=== PATIENT | female | born 1940 | race Caucasian/White ===

== ENCOUNTER 2020-02-28 13:00 | Emergency (ER) | payer MEDICARE, OTHER ==
[2020-02-28] MEDS ORDERED: Sodium Chloride 0.9% 10 ML Syringe FLUSH PRN (13:30)
--- NOTE | 2020-02-28 14:29 | CR ---
Abdominal series: Supine and upright views of the abdomen were obtained as well as frontal view of the chest. Comparison: No prior abdominal or chest imaging is available. Findings: Heart size and mediastinum are within normal limits for age. Lungs are clear with no acute parenchymal change. No free air is seen. Scattered gas within small bowel and colon is seen believed to be within normal limits. Surgical clips are seen within the pelvis. Bone structures shows degenerative change and mild scoliosis within the spine. Mild joint space narrowing within the left hip is seen. Impression: 1. Nonacute findings as described above. Diagnostic code #2 Study was dictated in MDT
--- NOTE | 2020-02-28 15:02 | EDM.PDOC ---
ED HPI GENERAL MEDICAL PROBLEM - General Chief Complaint: Abdominal Pain Stated Complaint: ABDOMINAL PAIN Time Seen by Provider: 02/28/20 13:15 Source of Information: Reports: Patient History Limitations: Reports: No Limitations - History of Present Illness INITIAL COMMENTS - FREE TEXT/NARRATIVE: The patient presents with upper abdominal pain. This has been going on for about a year. 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 She is from [place] and did not get it checked out. She has been here a week with family for another 3 weeks. The pain is constant but gets worse at times. Her family thought she was pale. She has no fever, chills, cough, congestion, runny nose, nausea, vomiting, dysuria or hematuria. She says she can only eat a little and she is full. Onset: Gradual Duration: Week(s): (1 year) Location: Reports: Abdomen Quality: Reports: Sharp Severity: Moderate Improves with: Reports: None Worsens with: Reports: None Associated Symptoms: Reports: No Other Symptoms Right Abdomen Pain Score (Numeric/FACES): 6 - Related Data Allergies Allergy/AdvReac Type Severity Reaction Status Date / Time No Known Allergies Allergy Verified 02/28/20 13:24 Home Meds: Home Meds Ascorbic Acid/Collagen Hydr [Collagen Plus Vit C] 1 cap PO DAILY 02/28/20 [History] Doxepin [SINEquan] 10 mg PO BEDTIME 02/28/20 [History] Ergocalciferol (Vitamin D2) [Vitamin D2] 1.25 mg PO ASDIRECTED 02/28/20 [History] Hydrocodone/Acetaminophen [Hydrocodone-Acetamin 5-325 mg] 1 - 2 each PO Q6HR PRN #20 tablet 02/28/20 [Rx] Melatonin 10 mg PO BEDTIME 02/28/20 [History] Metoprolol Tartrate 50 mg PO DAILY 02/28/20 [History] Multivitamin [Multivitamins] 1 tab PO DAILY 02/28/20 [History] Tacrolimus [Prograf] 1 mg PO BID 02/28/20 [History] amLODIPine [Norvasc] 5 mg PO DAILY 02/28/20 [History] metFORMIN [Glucophage] 500 mg PO BID 02/28/20 [History] traMADol [Ultram] 50 - 100 mg PO TID PRN 02/28/20 [History] Past Medical History Cardiovascular History: Reports: Hypertension Gastrointestinal History: Reports: Other (See Below) Other Gastrointestinal History: liver transplant; abdominal hernia repair with mesh Endocrine/Metabolic History: Reports: Diabetes, Type II - Past Surgical History Female Surgical History: Reports: Section, Hysterectomy Social & Family History - Tobacco Use Smoking Status *Q: Former Smoker Used Tobacco, but Quit: Yes Month/Year Tobacco Last Used: 40 yrs - Caffeine Use Caffeine Use: Reports: Soda Other Caffeine Use: diet - Recreational Drug Use Recreational Drug Use: No ED ROS GENERAL - Review of Systems Review Of Systems: See Below Constitutional: Reports: No Symptoms HEENT: Reports: No Symptoms Respiratory: Reports: No Symptoms Cardiovascular: Reports: No Symptoms Endocrine: Reports: No Symptoms GI/Abdominal: Reports: Abdominal Pain. Denies: Diarrhea, Nausea, Vomiting : Reports: No Symptoms Musculoskeletal: Reports: No Symptoms ED EXAM, GI/ABD - Physical Exam Exam: See Below Exam Limited By: No Limitations General Appearance: Alert, No Apparent Distress Ears: Normal External Exam Nose: Normal Inspection Head: Atraumatic, Normocephalic Neck: Normal Inspection Respiratory/Chest: No Respiratory Distress, Lungs Clear, Normal Breath Sounds Cardiovascular: Regular Rate, Rhythm, No Edema, No Murmur GI/Abdominal Exam: Soft, No Organomegaly, No Mass, Tender (Mild tenderness to the epigastric area) Course - Vital Signs Last Recorded V/S: Last Vital Signs Temp 97.3 F 02/28/20 13:17 Pulse 69 02/28/20 13:17 Resp 20 02/28/20 13:17 BP 132/60 02/28/20 13:17 Pulse Ox 98 02/28/20 13:17 - Orders/Labs/Meds Orders: Active Orders 24 hr Category Date Time Status Peripheral IV Care [RC] . DIRECTED Care 02/28/20 13:32 Active Sodium Chloride 0.9% [Saline Flush] Med 02/28/20 13:30 Active 10 ml FLUSH ASDIRECTED PRN Peripheral IV Insertion Adult [OM.PC] Stat Oth 02/28/20 13:30 Ordered Medication Orders Sodium Chloride (Saline Flush) 10 ml FLUSH ASDIRECTED PRN PRN Reason: Keep Vein Open Last Admin: 02/28/20 13:20 Dose: 10 ml Documented by: JENI Labs: Laboratory Tests 02/28/20 02/28/20 Range/Units 13:58 13:58 WBC 6.51 (3.98-10.04) K/mm3 RBC 4.13 (3.98-5.22) M/mm3 Hgb 12.1 (11.2-15.7) gm/dl Hct 36.6 (34.1-44.9) % MCV 88.6 (79.4-94.8) fl MCH 29.3 (25.6-32.2) pg MCHC 33.1 (32.2-35.5) g/dl RDW Std Deviation 49.3 H (36.4-46.3) fL Plt Count 160 L (182-369) K/mm3 MPV 9.2 L (9.4-12.3) fl Neut % (Auto) 61.8 (34.0-71.1) % Lymph % (Auto) 26.6 (19.3-51.7) % Giles % (Auto) 9.7 (4.7-12.5) % Eos % (Auto) 1.4 (0.7-5.8) Baso % (Auto) 0.3 (0.1-1.2) % Neut # (Auto) 4.03 (1.56-6.13) K/mm3 Lymph # (Auto) 1.73 (1.18-3.74) K/mm3 Giles # (Auto) 0.63 H (0.24-0.36) K/mm3 Eos # (Auto) 0.09 (0.04-0.36) K/mm3 Baso # (Auto) 0.02 (0.01-0.08) K/mm3 Sodium 141 (136-145) mEq/L Potassium 3.3 L (3.5-5.1) mEq/L Chloride 105 (98-107) mEq/L Carbon Dioxide 28 (21-32) mEq/L Anion Gap 11.3 (5-15) BUN 15 (7-18) mg/dL Creatinine 1.1 H (0.55-1.02) mg/dL Est Cr Clr Drug Dosing 40.09 mL/min Estimated GFR (MDRD) 48 (>60) mL/min BUN/Creatinine Ratio 13.6 L (14-18) Glucose 153 H (83-115) mg/dL Calcium 9.2 (8.5-10.1) mg/dL Total Bilirubin 1.1 H (0.2-1.0) mg/dL AST 23 (15-37) U/L ALT 15 (14-59) U/L Alkaline Phosphatase 62 (46-116) U/L Total Protein 7.5 (6.4-8.2) g/dl Albumin 3.1 L (3.4-5.0) g/dl Globulin 4.4 gm/dL Albumin/Globulin Ratio 0.7 L (1-2) Lipase 157 (73-393) U/L Meds: Medications Generic Name Dose Route Start Last Admin Trade Name Freq PRN Reason Stop Dose Admin Sodium Chloride 10 ml 02/28/20 13:30 02/28/20 13:20 Saline Flush FLUSH 10 ml ASDIRECTED PRN Administration Keep Vein Open - Re-Assessments/Exams Free Text/Narrative Re-Assessment/Exam: 02/28/20 15:08 I ordered an x-ray and some labs. Her abdominal x-ray shows nothing acute. Her CBC looks good. Her K was 3.3. Her creatinine is elevated at 1.1. Her glucose was elevated at 153. Her total bili was elevated at 1.1. Her lipase is normal. I do not see a reason to do a CT. She said she has been scoped before. I will get her something for pain and have her follow up with one of our providers in our clinic. Departure - Departure Time of Disposition: 15:15 Disposition: Home, Self-Care 01 Condition: Good Clinical Impression: Abdominal pain Qualifiers: Abdominal location: upper abdomen, unspecified Qualified Code(s): R10.10 - Upper abdominal pain, unspecified - Discharge Information *PRESCRIPTION DRUG MONITORING PROGRAM REVIEWED*: Not Applicable *COPY OF PRESCRIPTION DRUG MONITORING REPORT IN PATIENT SEGUNDO: Not Applicable Prescriptions: Hydrocodone/Acetaminophen [Hydrocodone-Acetamin 5-325 mg] 1 - 2 each PO Q6HR PRN #20 tablet PRN Reason: Pain Referrals: PCP,Not In Area [Primary Care Provider] - Salome Olivas DIE OUT WORKER [Nurse Practitioner] - 1 Week Forms: ED Department Discharge Additional Instructions: Take your medication as prescribed. Try some pepcid daily for 2 weeks. Try the hydrocodone for pain instead of the ultram. Follow up with Salome Nguyen in the clinic. Please return if you are worse. Sepsis Event Note (ED) - Evaluation Sepsis Screening Result: No Definite Risk - Focused Exam Vital Signs: Vital Signs Temp Pulse Resp BP Pulse Ox 02/28/20 13:17 97.3 F 69 20 132/60 98 - My Orders Last 24 Hours: My Active Orders 02/28/20 13:30 Sodium Chloride 0.9% [Saline Flush] 10 ml FLUSH ASDIRECTED PRN Peripheral IV Insertion Adult [OM.PC] Stat 02/28/20 13:32 Peripheral IV Care [RC] . DIRECTED - Assessment/Plan Last 24 Hours: My Active Orders 02/28/20 13:30 Sodium Chloride 0.9% [Saline Flush] 10 ml FLUSH ASDIRECTED PRN Peripheral IV Insertion Adult [OM.PC] Stat 02/28/20 13:32 Peripheral IV Care [RC] . DIRECTED
== END 2020-02-28 15:35 | disposition home or self-care (01) ==
LOC: JD.ED 13:00
DX: R10.11 Right upper quadrant pain (principal); R10.13 Epigastric pain; I10 Essential (primary) hypertension; E11.9 Type 2 diabetes mellitus without complications; Z94.4 Liver transplant status; Z90.710 Acquired absence of both cervix and uterus; Z87.891 Personal history of nicotine dependence; Z79.84 Long term (current) use of oral hypoglycemic drugs; Z79.899 Other long term (current) drug therapy
CPT/HCPCS: 36415; 74022; 74022-26; 80053; 83690; 85025; 99283; 99284-25

== ENCOUNTER 2020-05-22 14:28 | Emergency (ER) | payer MEDICARE | END 2020-05-22 14:30 | disposition left against medical advice (07) | LOC: JD.ED 14:28 | DX: Z53.21 Procedure and treatment not carried out due to patient leaving prior to being seen by health care provider (principal) ==

== ENCOUNTER 2020-06-09 14:23 | Inpatient (IN) | payer MEDICARE ==
[2020-06-09] MEDS ORDERED: Sodium Chloride 0.9% 1,000 ML IV ONE (14:55)
--- NOTE | 2020-06-09 15:10 | EDM.PDOC ---
<Noah Kwon - Last Filed: 06/09/20 16:17> ED HPI GENERAL MEDICAL PROBLEM - General Chief Complaint: General Stated Complaint: LOW BLOOD PRESSURE,POSSIBLE BLEED POST SURG Time Seen by Provider: 06/09/20 14:55 Source of Information: Reports: Patient, Family History Limitations: Reports: No Limitations - History of Present Illness INITIAL COMMENTS - FREE TEXT/NARRATIVE: 79-year-old female who presents to the emergency department with complaints of low blood pressure and abdominal pain, increased weakness, and decreased appetite. The patient had a bowel resection on June 01 at [facility] in [place]. She was discharged to home on June 04. Since she has been home both her and the daughter reports she has not had much of an appetite. She has not had a fever or vomiting but she has been nauseated. She has had a bowel movement since surgery. Last bowel movement was this morning which the patient described as cottage cheese looking however the daughter of the patient states it was mushy and brown. They denied noticing any ingrid red blood or dark tarry stools. The patient has not been taking her pain meds has maybe only taken a total of 6 since she has been home. Home health care nurse was in to see the patient today and noted low blood pressures and recommended the patient be sent to the emergency department. Initial blood pressure in the emergency department was 97/45 with a heart rate of 60. Of note she does take metoprolol. The patient surgical incisions to her abdomen are healing well and there is no drainage, erythema, or edema noted. Onset: Gradual Lower Abdomen Pain Score (Numeric/FACES): 3 - Related Data Allergies Allergy/AdvReac Type Severity Reaction Status Date / Time No Known Allergies Allergy Verified 06/09/20 14:42 Home Meds: Home Meds Doxepin [SINEquan] 10 mg PO BEDTIME 02/28/20 [History] Ergocalciferol (Vitamin D2) [Vitamin D2] 1.25 mg PO ASDIRECTED 02/28/20 [History] Hydrocodone/Acetaminophen [Hydrocodone-Acetamin 5-325 mg] 1 - 2 each PO Q6HR PRN #20 tablet 02/28/20 [Rx] Melatonin 20 mg PO BEDTIME 02/28/20 [History] Metoprolol Tartrate 50 mg PO DAILY 02/28/20 [History] Multivitamin [Multivitamins] 1 tab PO DAILY 02/28/20 [History] Tacrolimus [Prograf] 1 mg PO BID 02/28/20 [History] amLODIPine [Norvasc] 5 mg PO DAILY 02/28/20 [History] metFORMIN [Glucophage] 500 mg PO BID 02/28/20 [History] traMADol [Ultram] 50 - 100 mg PO TID PRN 02/28/20 [History] Omeprazole 20 mg PO DAILY 06/09/20 [History] Vit A/C/Biotin/Zinc/Selenometh [Biotin-Vitamin C Softgel] 1 cap PO DAILY 06/09/20 [History] Past Medical History Cardiovascular History: Reports: Hypertension Gastrointestinal History: Reports: Other (See Below) Other Gastrointestinal History: liver transplant; abdominal hernia repair with mesh 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: Endocrine/Metabolic History: Reports: Diabetes, Type II Oncologic (Cancer) History: Reports: Colon - Infectious Disease History Infectious Disease History: Reports: Chicken Pox, Measles, Mumps - Past Surgical History HEENT Surgical History: Reports: Tonsillectomy GI Surgical History: Reports: Appendectomy, Cholecystectomy, Colon Female Surgical History: Reports: Section, Hysterectomy Social & Family History - Tobacco Use Tobacco Use Status *Q: Never Tobacco User Second Hand Smoke Exposure: No - Caffeine Use Caffeine Use: Reports: None Other Caffeine Use: diet - Recreational Drug Use Recreational Drug Use: No ED ROS GENERAL - Review of Systems Review Of Systems: See Below Constitutional: Reports: Weakness, Decreased Appetite. Denies: Fever, Chills HEENT: Reports: No Symptoms Respiratory: Reports: No Symptoms Cardiovascular: Reports: No Symptoms. Denies: Chest Pain, Palpitations, Syncope Endocrine: Reports: No Symptoms GI/Abdominal: Reports: Abdominal Pain, Decreased Appetite, Nausea. Denies: Black Stool, Bloody Stool, Constipation, Diarrhea, Distension, Melena, Vomiting : Reports: No Symptoms. Denies: Dysuria, Frequency, Urgency Musculoskeletal: Reports: No Symptoms Skin: Reports: No Symptoms Neurological: Reports: No Symptoms Psychiatric: Reports: No Symptoms Hematologic/Lymphatic: Reports: No Symptoms Immunologic: Reports: No Symptoms ED EXAM, GENERAL - Physical Exam Exam: See Below Exam Limited By: No Limitations General Appearance: Alert, WD/WN, No Apparent Distress Eye Exam: Bilateral Eye: Normal Inspection, PERRL Throat/Mouth: Normal Inspection, Normal Lips, Normal Teeth, No Airway Compromise Head: Atraumatic, Normocephalic Neck: Normal Inspection, Supple, Non-Tender, Full Range of Motion Respiratory/Chest: No Respiratory Distress, Lungs Clear, Normal Breath Sounds, No Accessory Muscle Use, Chest Non-Tender Cardiovascular: Normal Peripheral Pulses, Regular Rate, Rhythm, No Edema, No Murmur Peripheral Pulses: 2+: Radial (L), Radial (R) GI/Abdominal: Normal Bowel Sounds, Soft, No Distention, Tender (right upper quadrant very tender with palpation) (Female) Exam: Deferred Rectal (Female) Exam: Deferred Back Exam: Normal Inspection, Full Range of Motion Extremities: Normal Inspection, Normal Range of Motion, Non-Tender, No Pedal Edema, Normal Capillary Refill Neurological: Alert, Oriented, Normal Cognition, No Motor/Sensory Deficits Psychiatric: Normal Affect, Normal Mood Skin Exam: Warm, Dry, Intact, No Rash, Pallor Lymphatic: No Adenopathy Course - Re-Assessments/Exams Free Text/Narrative Re-Assessment/Exam: 06/09/20 15:14 I have ordered a CBC, CMP, magnesium, and a C-reactive protein on this patient. I also elected to do a CT scan of her abdomen and pelvis. Patient will also receive a liter of normal saline wide open. 06/09/20 16:17 Labs reveal WBC at 8.42, hemoglobin 9.6, hematocrit 30.3, potassium is 3.5, BUN 11, creatinine 1.4, GFR 36, magnesium 0.8, C-reactive protein 3.6. I have ordered 4 g of magnesium IV, and 40 mEq of potassium p.o. for this patient. Awaiting radiologist read on CT scanning. 06/09/20 16:17 I have reported off to Amanda CAMPBELL on this patient. Departure - Departure Disposition: Admitted As Inpatient 68 Clinical Impression: Hypomagnesemia Hypotension Qualifiers: Hypotension type: other hypotension type Qualified Code(s): I95.89 - Other hypotension - Discharge Information Sepsis Event Note (ED) - Evaluation Sepsis Screening Result: No Definite Risk <Amanda Martínez V - Last Filed: 06/09/20 18:42> Course - Vital Signs Last Recorded V/S: Last Vital Signs Temp 96.9 F 06/09/20 18:25 Pulse 67 06/09/20 18:25 Resp 16 06/09/20 18:25 BP 115/51 L 06/09/20 18:25 Pulse Ox 93 L 06/09/20 18:25 Orthostatic Blood Pressure [ 117/47 Standing] Orthostatic Blood Pressure [ 105/45 Sitting] Orthostatic Blood Pressure [ 121/43 Supine] - Orders/Labs/Meds Orders: Active Orders 24 hr Category Date Time Status Orthostatic Vital Signs [RC] ASDIRECTED Care 06/09/20 14:46 Active Magnesium Sulfate/Water [Magnesium Sulfate in Water Med 06/09/20 15:52 Active Premix] 4 gm Premix Bag 1 bag IV ONETIME Sodium Chloride 0.9% [Saline Flush] Med 06/09/20 15:25 Active 10 ml FLUSH ONETIME PRN Medication Orders Acetaminophen (Tylenol) 650 mg PO Q4H PRN PRN Reason: Pain (Mild 1-3)/fever Hydrocodone Bitart/Acetaminophen ([place] 325-5 Mg) 2 tab PO Q4H PRN PRN Reason: Pain (moderate 4-6) Enoxaparin Sodium (Lovenox) 30 mg SUBCUT DAILY [facility] Magnesium Sulfate 4 gm/ Premix 50 mls @ 12.5 mls/hr IV ONETIME ONE Stop: 06/09/20 19:51 Last Admin: 06/09/20 16:28 Dose: 12.5 mls/hr Documented by: JENI Lactated Ringer's (Ringers, Lactated) 1,000 mls @ 50 mls/hr IV ASDIRECTED [facility] Promethazine HCl (Phenergan) 25 mg PO Q6H PRN PRN Reason: Nausea/Vomiting Sodium Chloride (Saline Flush) 10 ml FLUSH ONETIME PRN PRN Reason: IV FLUSH Last Admin: 06/09/20 14:50 Dose: 10 ml Documented by: JENI Labs: Laboratory Tests 06/09/20 06/09/20 06/09/20 Range/Units 14:50 14:50 14:50 WBC 8.42 (3.98-10.04) K/mm3 RBC 3.28 L (3.98-5.22) M/mm3 Hgb 9.6 L D (11.2-15.7) gm/dl Hct 30.3 L (34.1-44.9) % MCV 92.4 D (79.4-94.8) fl MCH 29.3 (25.6-32.2) pg MCHC 31.7 L (32.2-35.5) g/dl RDW Std Deviation 53.4 H (36.4-46.3) fL Plt Count 197 (182-369) K/mm3 MPV 9.2 L (9.4-12.3) fl Neut % (Auto) 65.5 (34.0-71.1) % Lymph % (Auto) 20.1 (19.3-51.7) % [place]oard % (Auto) 9.7 (4.7-12.5) % Eos % (Auto) 4.0 (0.7-5.8) Baso % (Auto) 0.2 (0.1-1.2) % Neut # (Auto) 5.51 (1.56-6.13) K/mm3 Lymph # (Auto) 1.69 (1.18-3.74) K/mm3 [place]oard # (Auto) 0.82 H (0.24-0.36) K/mm3 Eos # (Auto) 0.34 (0.04-0.36) K/mm3 Baso # (Auto) 0.02 (0.01-0.08) K/mm3 Sodium 140 (136-145) mEq/L Potassium 3.5 (3.5-5.1) mEq/L Chloride 105 (98-107) mEq/L Carbon Dioxide 28 (21-32) mEq/L Anion Gap 10.5 (5-15) BUN 11 (7-18) mg/dL Creatinine 1.4 H (0.55-1.02) mg/dL Est Cr Clr Drug Dosing 31.50 mL/min Estimated GFR (MDRD) 36 (>60) mL/min BUN/Creatinine Ratio 7.9 L (14-18) Glucose 133 H (83-115) mg/dL Calcium 8.7 (8.5-10.1) mg/dL Magnesium 0.8 L (1.8-2.4) mg/dl Total Bilirubin 0.9 (0.2-1.0) mg/dL AST 16 (15-37) U/L ALT 13 L (14-59) U/L Alkaline Phosphatase 57 (46-116) U/L C-Reactive Protein 3.6 H* (<1.0) mg/dL Total Protein 5.9 L (6.4-8.2) g/dl Albumin 2.4 L (3.4-5.0) g/dl Globulin 3.5 gm/dL Albumin/Globulin Ratio 0.7 L (1-2) SARS-CoV-2 RNA (NAVEED) (NEGATIVE) 06/09/20 Range/Units 17:00 WBC (3.98-10.04) K/mm3 RBC (3.98-5.22) M/mm3 Hgb (11.2-15.7) gm/dl Hct (34.1-44.9) % MCV (79.4-94.8) fl MCH (25.6-32.2) pg MCHC (32.2-35.5) g/dl RDW Std Deviation (36.4-46.3) fL Plt Count (182-369) K/mm3 MPV (9.4-12.3) fl Neut % (Auto) (34.0-71.1) % Lymph % (Auto) (19.3-51.7) % Foard % (Auto) (4.7-12.5) % Eos % (Auto) (0.7-5.8) Baso % (Auto) (0.1-1.2) % Neut # (Auto) (1.56-6.13) K/mm3 Lymph # (Auto) (1.18-3.74) K/mm3 Foard # (Auto) (0.24-0.36) K/mm3 Eos # (Auto) (0.04-0.36) K/mm3 Baso # (Auto) (0.01-0.08) K/mm3 Sodium (136-145) mEq/L Potassium (3.5-5.1) mEq/L Chloride (98-107) mEq/L Carbon Dioxide (21-32) mEq/L Anion Gap (5-15) BUN (7-18) mg/dL Creatinine (0.55-1.02) mg/dL Est Cr Clr Drug Dosing mL/min Estimated GFR (MDRD) (>60) mL/min BUN/Creatinine Ratio (14-18) Glucose (83-115) mg/dL Calcium (8.5-10.1) mg/dL Magnesium (1.8-2.4) mg/dl Total Bilirubin (0.2-1.0) mg/dL AST (15-37) U/L ALT (14-59) U/L Alkaline Phosphatase (46-116) U/L C-Reactive Protein (<1.0) mg/dL Total Protein (6.4-8.2) g/dl Albumin (3.4-5.0) g/dl Globulin gm/dL Albumin/Globulin Ratio (1-2) SARS-CoV-2 RNA (NAVEED) Negative (NEGATIVE) Meds: Medications Generic Name Dose Route Start Last Admin Trade Name Freq PRN Reason Stop Dose Admin Acetaminophen 650 mg 06/09/20 17:50 Tylenol PO Q4H PRN Pain (Mild 1-3)/fever Hydrocodone Bitart/Acetaminophen 2 tab 06/09/20 17:50 [place] 325-5 Mg PO Q4H PRN Pain (moderate 4-6) Enoxaparin Sodium 30 mg 06/10/20 09:00 Lovenox SUBCUT DAILY [facility] Magnesium Sulfate 4 gm/ Premix 50 mls @ 12.5 mls/hr 06/09/20 15:52 06/09/20 16:28 IV 06/09/20 19:51 12.5 mls/hr ONETIME ONE Administration Lactated Ringer's 1,000 mls @ 50 mls/hr 06/09/20 18:00 Ringers, Lactated IV ASDIRECTED [facility] Promethazine HCl 25 mg 06/09/20 17:50 Phenergan PO Q6H PRN Nausea/Vomiting Sodium Chloride 10 ml 06/09/20 15:25 06/09/20 14:50 Saline Flush FLUSH 10 ml ONETIME PRN Administration IV FLUSH Discontinued Medications Generic Name Dose Route Start Last Admin Trade Name Freq PRN Reason Stop Dose Admin Sodium Chloride 1,000 mls @ 999 mls/hr 06/09/20 14:55 06/09/20 15:54 Normal Saline IV 06/09/20 15:55 999 mls/hr ONETIME ONE Administration Iopamidol 100 ml 06/09/20 15:25 06/09/20 15:43 Isovue-300 (61%) IVPUSH 06/09/20 15:26 100 ml ONETIME ONE Administration Potassium Chloride 40 meq 06/09/20 15:52 06/09/20 16:26 Klor-Con M20 PO 06/09/20 15:53 40 meq ONETIME ONE Administration - Re-Assessments/Exams Free Text/Narrative Re-Assessment/Exam: 06/09/20 16:04 Received report from Stefano Ac NP patient was found to be hypomagnesemic at 0.8, potassium on the low side of normal at 3.5, hemoglobin mildly low at 9.6, otherwise she has no elevated white count CRP is mildly elevated at 3. Abdomen/pelvis CT is still pending at this time. Noah is ordering 4 g mag and 40 mEq p.o. potassium for initial management for the electrolyte abnormalities, we are still awaiting official radiology read of the CT. 06/09/20 17:[address] has been read, and there is mild wall thickening within the right side of the jejunal loops with a small amount of surrounding fluid suspicious for mild enteritis. Some of this may relate to her surgery but there is additional fluid seen within the pelvis. Previous surgery noted within the abdomen. Haziness within the mesentery which is presumably postsurgical. 2 pancreatic cysts, given age of the patient 75 these are likely benign, no other acute findings were appreciated. With this information, her low magnesium, low blood pressure at time of presentation I do believe the patient would benefit from hospitalization for ongoing management. Patient is amenable to this plan. I have called Dr. Lynn our hospitalist for possible admission. He was busy and states he will come over to talk with me when he was finished with what he was doing at the time I called him. Patient's [id number], Naya was called as well, she is tentatively okay with the hospital admission as well. The [id number] indicates that the patient would want CPR, but would not want to be intubated or kept alive by machines and tubes. Departure - Departure Time of Disposition: 18:41 Condition: Fair Sepsis Event Note (ED) - Focused Exam Vital Signs: Vital Signs Temp Pulse Resp BP Pulse Ox 06/09/20 14:38 97.1 F 60 14 97/45 L 97
[2020-06-09] MEDS ORDERED: Iopamidol 612 MG/ML 100 ML Bottle IVPUSH ONE (15:25)
[2020-06-09] MEDS ORDERED: Sodium Chloride 0.9% 10 ML Syringe FLUSH PRN (15:25)
[2020-06-09] MEDS ORDERED: Potassium Chloride 20 MEQ Tab.ER PO ONE (15:52)
[2020-06-09] MEDS ORDERED: Magnesium Sulfate/Water 4 GM in Premix Bag 1 BAG IV ONE (15:52)
--- NOTE | 2020-06-09 16:09 | CT ---
CT abdomen and pelvis Technique: Multiple axial sections were obtained from above the dome of the diaphragm inferiorly through the pubic symphysis. Intravenous contrast was utilized. No oral contrast was given. Findings: There is slight thickening of portions of the proximal jejunum. Previous surgery is noted within the proximal jejunum and abdomene. There is fluid being seen around these areas of wall thickening as well as more confluent fluid within the pelvis. Findings are highly suspicious for mild enteritis. Visualized lung bases show nothing acute. Liver shows no focal abnormality. Spleen size measures at the upper limits of normal at 12.5 cm. Kidneys show symmetric contrast enhancement with no hydronephrosis or discrete mass. Aorta shows diffuse atherosclerotic calcification which continues into the iliac vessels. Pancreas shows a small cyst within the neck of the pancreas. Second smaller cyst is seen within the body of the pancreas measuring 8 cm. No additional pancreatic finding is appreciated. Slight haziness is noted within portions of the mesentery presumably from previous surgery. Delayed images show slight contrast within the bladder. Osseous: Diffuse degenerative change noted throughout the spine. No acute osseous finding is appreciated. Impression: 1. Mild wall thickening within right side of jejunal loops with a small amount of surrounding fluid suspicious for mild enteritis. Some of this may relate to surgery. Additional fluid is seen within the pelvis. 2. Previous surgery is noted within the abdomen. Haziness within the mesentery which is presumably postsurgical. 3. Two cysts within the pancreas. Given the patient's age of 75 these are likely benign. 3. Other nonacute findings as noted above. Diagnostic code #3
[2020-06-09] MEDS ORDERED: Acetaminophen 325 MG Tab PO PRN (17:50)
[2020-06-09] MEDS ORDERED: Promethazine 25 MG Tab PO PRN (17:50)
--- NOTE | 2020-06-09 18:50 | PCM.HP.2 ---
H&P History of Present Illness - General Date of Service: 06/09/20 Admit Problem/Dx: Admission Diagnosis/Problem Admission Diagnosis/Problem Hypomagnesemia/weakness/post op partial colectomy Source of Information: Patient, EMS, Provider History Limitations: Reports: No Limitations - History of Present Illness Initial Comments - Free Text/Narative: 79 year old female admitted with weakness 4 days s/p partial colectomy for colon cancer. she relates sh is having brown cottege cheese like bms today and feels very weak with abd pain in lower abd. denies fever chills rigors . no vomiting but mild nausea but eating fairly well. feels dizzy when standing. voiding well and wears depends for partial incontinence. apperent colon resection for colon cancer . previous hysterectomy . no hx of sbo by hx. not eating today and felt weak. taking pain meds but still very painful. pmh diff to get from patient all : unknown soc hx lives at home with son? nobody available for hx . verification ros negative for covid /uti chest pain /tia and or bleeding form rectum. p.e. see note. lab mg .7 hgn 9.4. lfts pending. ua pending ct scan shows edema around jujunum and colon with surgical changes and edema of bowel wall with thickening . chest xray pending. ekg pending. assess: 1) abd pain with edema and post op changes without findings of abscess seen/ will have gen. surgery see in am but appears stable. 2) /// antibiotics not clearly indicated. mild crp elavation a nd recheck labs in am . 3) pain control diff. to say but not bad in bed with current po narcotics. 4) dehydration moderate and cont i.v replacement . 5) hypomagnesemia fairly severe and will need replacement and started on i.v and p.o mag. 6)mild dementia. mild thrombocytopenia . 7) colon cancer ? stage and or prognosis not addressed . 8) weakness pt and ss and ot consulted/ needs some dietary supplements as well boh Onset of Symptoms: Reports: Gradual Symptom Onset Date: 06/07/20 Location: Reports: Abdomen, Generalized Quality: Reports: Ache, Sharp Severity: Moderate Improves with: Reports: Medication Worsens with: Reports: Movement Associated Symptoms: Reports: Confusion, Loss of Appetite, Malaise Lower Abdomen Pain Score (Numeric/FACES): 3 - Related Data Allergies/Adverse Reactions: Allergies Allergy/AdvReac Type Severity Reaction Status Date / Time No Known Allergies Allergy Verified 06/09/20 14:42 Home Medications: Home Meds Doxepin [SINEquan] 10 mg PO BEDTIME 02/28/20 [History] Ergocalciferol (Vitamin D2) [Vitamin D2] 1.25 mg PO ASDIRECTED 02/28/20 [History] Hydrocodone/Acetaminophen [Hydrocodone-Acetamin 5-325 mg] 1 - 2 each PO Q6HR PRN #20 tablet 02/28/20 [Rx] Melatonin 20 mg PO BEDTIME 02/28/20 [History] Metoprolol Tartrate 50 mg PO DAILY 02/28/20 [History] Multivitamin [Multivitamins] 1 tab PO DAILY 02/28/20 [History] Tacrolimus [Prograf] 1 mg PO BID 02/28/20 [History] amLODIPine [Norvasc] 5 mg PO DAILY 02/28/20 [History] metFORMIN [Glucophage] 500 mg PO BID 02/28/20 [History] traMADol [Ultram] 50 - 100 mg PO TID PRN 02/28/20 [History] Omeprazole 20 mg PO DAILY 06/09/20 [History] Vit A/C/Biotin/Zinc/Selenometh [Biotin-Vitamin C Softgel] 1 cap PO DAILY 06/09/20 [History] Past Medical History Cardiovascular History: Reports: Hypertension Gastrointestinal History: Reports: Other (See Below) Other Gastrointestinal History: liver transplant; abdominal hernia repair with mesh [employer] History: Reports: Endocrine/Metabolic History: Reports: Diabetes, Type II Oncologic (Cancer) History: Reports: Colon - Infectious Disease History Infectious Disease History: Reports: Chicken Pox, Measles, Mumps - Past Surgical History HEENT Surgical History: Reports: Tonsillectomy GI Surgical History: Reports: Appendectomy, Cholecystectomy, Colon Female Surgical History: Reports: Section, Hysterectomy Social & Family History - Tobacco Use Tobacco Use Status *Q: Never Tobacco User Second Hand Smoke Exposure: No - Caffeine Use Caffeine Use: Reports: None Other Caffeine Use: diet - Recreational Drug Use Recreational Drug Use: No H&P Review of Systems - Review of Systems: Review Of Systems: See Below General: Reports: Decreased Appetite HEENT: Reports: No Symptoms Pulmonary: Reports: No Symptoms Cardiovascular: Reports: No Symptoms Gastrointestinal: Reports: Abdominal Pain, Anorexia, Black Stool, Diarrhea, Nausea Genitourinary: Reports: No Symptoms Musculoskeletal: Reports: No Symptoms Skin: Reports: No Symptoms Psychiatric: Reports: No Symptoms, Confusion Neurological: Reports: No Symptoms Hematologic/Lymphatic: Reports: No Symptoms, Anemia Exam - Exam Exam: See Below - Vital Signs Vital Signs: Last Vital Signs Temp 36.1 C 06/09/20 18:25 Pulse 67 06/09/20 18:25 Resp 16 06/09/20 18:25 BP 115/51 L 06/09/20 18:25 Pulse Ox 93 L 06/09/20 18:25 Orthostatic Blood Pressure [ 117/47 Standing] Orthostatic Blood Pressure [ 105/45 Sitting] Orthostatic Blood Pressure [ 121/43 Supine] Weight: 72.575 kg - Exam General: Alert, Oriented, 4 HEENT: PERRLA, Hearing Intact, Mucosa Moist & Bulger, Nares Patent, Normal Nasal Septum, Posterior Pharynx Clear, Conjunctiva Clear, EOMI, EACs Clear, TMs Clear Neck: Supple, Trachea Midline, 2 Lungs: Clear to Auscultation, Normal Respiratory Effort Cardiovascular: Regular Rate, Regular Rhythm GI/Abdominal Exam: Normal Bowel Sounds, Soft (scar well healed midline. scar /stab wound eschar. mild lower abd tendernes without rebound/// no chevron sca ), Non-Tender, No Organomegaly, No Distention, No Abnormal Bruit, No Mass (Female) Exam: Normal External Exam, Normal Speculum Exam, Normal Bimanual Exam Rectal (Female) Exam: Normal Exam, Normal Rectal Tone Back Exam: Normal Inspection, Full Range of Motion, NT Extremities: Normal Inspection, Normal Range of Motion, Non-Tender, No Pedal Edema, Normal Capillary Refill Peripheral Pulses: 2+: Carotid (L), Carotid (R), Brachial (L), Brachial (R) Skin: Warm, Dry, Intact, Wound, Incision Neurological: Cranial Nerves Intact, Reflexes Equal Bilateral Neuro Extensive - Mental Status: Alert, Oriented x3, Normal Mood/Affect, Normal Cognition Neuro Extensive - Motor, Sensory, Reflexes: CN II-XII Intact, Normal Gait, Normal Reflexes Psychiatric: Alert, Normal Affect, Normal Mood - Patient Data Lab Results Last 24 hrs: Laboratory Results - last 24 hr 06/09/20 06/09/20 06/09/20 Range/Units 14:50 14:50 14:50 WBC 8.42 (3.98-10.04) K/mm3 RBC 3.28 L (3.98-5.22) M/mm3 Hgb 9.6 L D (11.2-15.7) gm/dl Hct 30.3 L (34.1-44.9) % MCV 92.4 D (79.4-94.8) fl MCH 29.3 (25.6-32.2) pg MCHC 31.7 L (32.2-35.5) g/dl RDW Std Deviation 53.4 H (36.4-46.3) fL Plt Count 197 (182-369) K/mm3 MPV 9.2 L (9.4-12.3) fl Neut % (Auto) 65.5 (34.0-71.1) % Lymph % (Auto) 20.1 (19.3-51.7) % [place] % (Auto) 9.7 (4.7-12.5) % Eos % (Auto) 4.0 (0.7-5.8) Baso % (Auto) 0.2 (0.1-1.2) % Neut # (Auto) 5.51 (1.56-6.13) K/mm3 Lymph # (Auto) 1.69 (1.18-3.74) K/mm3 [place] # (Auto) 0.82 H (0.24-0.36) K/mm3 Eos # (Auto) 0.34 (0.04-0.36) K/mm3 Baso # (Auto) 0.02 (0.01-0.08) K/mm3 Sodium 140 (136-145) mEq/L Potassium 3.5 (3.5-5.1) mEq/L Chloride 105 (98-107) mEq/L Carbon Dioxide 28 (21-32) mEq/L Anion Gap 10.5 (5-15) BUN 11 (7-18) mg/dL Creatinine 1.4 H (0.55-1.02) mg/dL Est Cr Clr Drug Dosing 31.50 mL/min Estimated GFR (MDRD) 36 (>60) mL/min BUN/Creatinine Ratio 7.9 L (14-18) Glucose 133 H (83-115) mg/dL Calcium 8.7 (8.5-10.1) mg/dL Magnesium 0.8 L (1.8-2.4) mg/dl Total Bilirubin 0.9 (0.2-1.0) mg/dL AST 16 (15-37) U/L ALT 13 L (14-59) U/L Alkaline Phosphatase 57 (46-116) U/L C-Reactive Protein 3.6 H* (<1.0) mg/dL Total Protein 5.9 L (6.4-8.2) g/dl Albumin 2.4 L (3.4-5.0) g/dl Globulin 3.5 gm/dL Albumin/Globulin Ratio 0.7 L (1-2) SARS-CoV-2 RNA (NAVEED) (NEGATIVE) 06/09/20 Range/Units 17:00 WBC (3.98-10.04) K/mm3 RBC (3.98-5.22) M/mm3 Hgb (11.2-15.7) gm/dl Hct (34.1-44.9) % MCV (79.4-94.8) fl MCH (25.6-32.2) pg MCHC (32.2-35.5) g/dl RDW Std Deviation (36.4-46.3) fL Plt Count (182-369) K/mm3 MPV (9.4-12.3) fl Neut % (Auto) (34.0-71.1) % Lymph % (Auto) (19.3-51.7) % [place] % (Auto) (4.7-12.5) % Eos % (Auto) (0.7-5.8) Baso % (Auto) (0.1-1.2) % Neut # (Auto) (1.56-6.13) K/mm3 Lymph # (Auto) (1.18-3.74) K/mm3 [place] # (Auto) (0.24-0.36) K/mm3 Eos # (Auto) (0.04-0.36) K/mm3 Baso # (Auto) (0.01-0.08) K/mm3 Sodium (136-145) mEq/L Potassium (3.5-5.1) mEq/L Chloride (98-107) mEq/L Carbon Dioxide (21-32) mEq/L Anion Gap (5-15) BUN (7-18) mg/dL Creatinine (0.55-1.02) mg/dL Est Cr Clr Drug Dosing mL/min Estimated GFR (MDRD) (>60) mL/min BUN/Creatinine Ratio (14-18) Glucose (83-115) mg/dL Calcium (8.5-10.1) mg/dL Magnesium (1.8-2.4) mg/dl Total Bilirubin (0.2-1.0) mg/dL AST (15-37) U/L ALT (14-59) U/L Alkaline Phosphatase (46-116) U/L C-Reactive Protein (<1.0) mg/dL Total Protein (6.4-8.2) g/dl Albumin (3.4-5.0) g/dl Globulin gm/dL Albumin/Globulin Ratio (1-2) SARS-CoV-2 RNA (NAVEED) Negative (NEGATIVE) Result Diagrams: 06/09/20 14:50 06/09/20 14:50 Sepsis Event Note - Evaluation Sepsis Screening Result: No Definite Risk - Focused Exam Vital Signs: Vital Signs Temp Pulse Resp BP Pulse Ox 06/09/20 18:25 36.1 C 67 16 115/51 L 93 L 06/09/20 14:38 36.2 C 60 14 97/45 L 97 - Problem List (1) Hypomagnesemia SNOMED Code(s): 053882208 ICD Code: E83.42 - HYPOMAGNESEMIA Status: Acute Priority: High Current Visit: Yes Onset Date: ~06/09/20 (2) Dehydration SNOMED Code(s): 06787713 ICD Code: E86.0 - DEHYDRATION Status: Acute Priority: Medium Current Visit: Yes Onset Date: ~06/09/20 (3) Weakness SNOMED Code(s): 39421365 ICD Code: R53.1 - WEAKNESS Status: Acute Priority: Medium Current Visit: Yes Onset Date: ~06/09/20 (4) Loose bowel movements SNOMED Code(s): 865752228 ICD Code: R19.5 - OTHER FECAL ABNORMALITIES Status: Acute Priority: Low Current Visit: Yes Onset Date: ~06/09/20 Problem List Initiated/Reviewed/Updated: Yes Orders Last 24hrs: Active Orders 24 hr Category Date Time Status Admission Status [Patient Status] [ADT] Routine ADT 12/11/20 17:48 Active Antiembolic Devices [RC] PER UNIT ROUTINE Care 06/09/20 17:59 Active Blood Glucose Check, Bedside [RC] TIDMEALS Care 06/09/20 17:50 Active Intake and Output [RC] QSHIFT Care 06/09/20 17:55 Active Orthostatic Vital Signs [RC] ASDIRECTED Care 06/09/20 14:46 Active Oxygen Therapy [RC] PRN Care 06/09/20 17:53 Active Pulse Oximetry [RC] PRN Care 06/09/20 17:58 Active Up to Chair [RC] ASDIRECTED Care 06/09/20 17:50 Active VTE/DVT Education [RC] PER UNIT ROUTINE Care 06/09/20 17:53 Active Vital Signs [RC] Q4H Care 06/09/20 17:53 Active Consult to Case Management/Compliance Analyst [CONS] Cons 06/09/20 17:50 Active Routine OT Evaluation and Treatment [CONS] Routine Cons 06/09/20 17:50 Active PT Evaluation and Treatment [CONS] Routine Cons 06/09/20 17:50 Active Regular Diet [DIET] Diet 06/09/20 Dinner Active BASIC METABOLIC PANEL,BMP [CHEM] AM Lab 06/10/20 05:11 Ordered CBC WITH AUTO DIFF [HEME] AM Lab 06/10/20 05:11 Ordered MAGNESIUM [CHEM] AM Lab 06/10/20 05:11 Ordered MAGNESIUM [CHEM] AM Lab 06/11/20 05:11 Ordered MAGNESIUM [CHEM] AM Lab 06/12/20 05:11 Ordered UA W/O MICROSCOPIC [URIN] Routine Lab 06/09/20 17:50 Ordered Acetaminophen [TylenoL] Med 06/09/20 17:50 Active 650 mg PO Q4H PRN Acetaminophen/HYDROcodone [[place] 325-5 MG] Med 06/09/20 17:50 Active 2 tab PO Q4H PRN Enoxaparin [Lovenox] Med 06/10/20 09:00 Active 30 mg SUBCUT DAILY Lactated Ringers [Ringers, Lactated] 1,000 ml Med 06/09/20 18:00 Active IV ASDIRECTED Magnesium Sulfate/Water [Magnesium Sulfate in Water Med 06/09/20 15:52 Active Premix] 4 gm Premix Bag 1 bag IV ONETIME Promethazine [Phenergan] Med 06/09/20 17:50 Active 25 mg PO Q6H PRN Sodium Chloride 0.9% [Saline Flush] Med 06/09/20 15:25 Active 10 ml FLUSH ONETIME PRN Antiembolic Hose [OM.PC] Per Unit Routine Oth 06/09/20 17:58 Ordered Resuscitation Status Routine Resus Stat 06/09/20 17:50 Ordered Medication Orders Acetaminophen (Tylenol) 650 mg PO Q4H PRN PRN Reason: Pain (Mild 1-3)/fever Hydrocodone Bitart/Acetaminophen ([place] 325-5 Mg) 2 tab PO Q4H PRN PRN Reason: Pain (moderate 4-6) Enoxaparin Sodium (Lovenox) 30 mg SUBCUT DAILY [facility] Magnesium Sulfate 4 gm/ Premix 50 mls @ 12.5 mls/hr IV ONETIME ONE Stop: 06/09/20 19:51 Last Admin: 06/09/20 16:28 Dose: 12.5 mls/hr Documented by: JENI Lactated Ringer's (Ringers, Lactated) 1,000 mls @ 50 mls/hr IV ASDIRECTED [facility] Promethazine HCl (Phenergan) 25 mg PO Q6H PRN PRN Reason: Nausea/Vomiting Sodium Chloride (Saline Flush) 10 ml FLUSH ONETIME PRN PRN Reason: IV FLUSH Last Admin: 06/09/20 14:50 Dose: 10 ml Documented by: JENI Assessment/Plan Comment:: 79 year old female admitted with weakness 4 days s/p partial colectomy for colon cancer. she relates sh is having brown cottege cheese like bms today and feels very weak with abd pain in lower abd. denies fever chills rigors . no vomiting but mild nausea but eating fairly well. feels dizzy when standing. voiding well and wears depends for partial incontinence. apperent colon resection for colon cancer . previous hysterectomy . no hx of sbo by hx. not eating today and felt weak. taking pain meds but still very painful. pmh diff to get from patient all : unknown soc hx lives at home with son? nobody available for hx . verification ros negative for covid /uti chest pain /tia and or bleeding form rectum. p.e. see note. lab mg .7 hgn 9.4. lfts pending. ua pending ct scan shows edema around jujunum and colon with surgical changes and edema of bowel wall with thickening . chest xray pending. ekg pending. assess: 1) abd pain with edema and post op changes without findings of abscess seen/ will have gen. surgery see in am but appears stable. 2) /// antibiotics not clearly indicated. mild crp elavation a nd recheck labs in am . 3) pain control diff. to say but not bad in bed with current po narcotics. 4) dehydration moderate and cont i.v replacement . 5) hypomagnesemia fairly severe and will need replacement and started on i.v and p.o mag. 6)mild dementia. mild thrombocytopenia . 7) colon cancer ? stage and or prognosis not addressed . 8) weakness pt and ss and ot consulted/ needs some dietary supplements as well boh - Mortality Measure Prognosis:: Good
[2020-06-09] MEDS: Lactated Ringers 1,000 ML IV SCH (21:01)
[2020-06-09] MEDS ORDERED: Loperamide 2 MG Cap PO PRN (21:27)
[2020-06-09] MEDS: Tacrolimus 1 MG Cap PO SCH (21:32)
[2020-06-09] MEDS: Melatonin 3 MG Tab PO PRN (22:22)
[2020-06-10] MEDS: Pantoprazole 40 MG Tab.CR PO SCH (06:05)
[2020-06-10] MEDS: Potassium Chloride 20 MEQ Tab.ER PO SCH (08:23)
[2020-06-10] MEDS: Enoxaparin 30 MG/0.3 ML Syringe SUBCUT SCH (08:23)
[2020-06-10] MEDS ORDERED: Magnesium Sulfate/Water 4 GM in Premix Bag 1 BAG IV ONE ×2 (09:07→14:33)
[2020-06-10] MEDS: Tacrolimus 1 MG Cap PO SCH ×2 (10:15→20:06)
[2020-06-10] MEDS: Acetaminophen/HYDROcodone 325-5 MG Tab PO PRN ×2 (11:27→20:06)
--- NOTE | 2020-06-10 12:08 | PCM.CONS ---
H&P History of Present Illness - General Date of Service: 06/10/20 Admit Problem/Dx: Admission Diagnosis/Problem Admission Diagnosis/Problem Hypomagnesemia/weakness/post op partial colectomy Source of Information: Patient, Family (daughter) History Limitations: Reports: No Limitations - History of Present Illness Initial Comments - Free Text/Narative: Patient had laparoscopic right colectomy on 06/01/2020 at [facility] for colon cancer. Patient progressed well and was discharged on Friday06/04/2020. She did well at home for 2 days and then she started to have low appetite, fatigue and progressive weakness. Home health RN visited the family yesterday and noted the patient to be more pale with BP in the 90s/40s and patient was brought to the ED. In the ED, WBC was normal Hgb was 9.2, CT a/p showed inflammatory change in the right abdomen involving the small bowel. No abscess or intraabdominal fluid collections. Patient has been passing flatus and last BM was day of admission. she has been having loose BMs and was discharged on loperamide. Onset of Symptoms: Reports: Gradual Duration of Symptoms: Reports: Day(s): (3) Location: Reports: Abdomen, Generalized (weakness, loss of appetite) Severity: Moderate Improves with: Reports: None Worsens with: Reports: None Associated Symptoms: Reports: Loss of Appetite, Weakness Lower Abdomen Pain Score (Numeric/FACES): 3 - Related Data Allergies/Adverse Reactions: Allergies Allergy/AdvReac Type Severity Reaction Status Date / Time No Known Allergies Allergy Verified 06/10/20 01:08 Home Medications: Home Meds Doxepin [SINEquan] 10 mg PO BEDTIME 02/28/20 [History] Ergocalciferol (Vitamin D2) [Vitamin D2] 1.25 mg PO ASDIRECTED 02/28/20 [History] Hydrocodone/Acetaminophen [Hydrocodone-Acetamin 5-325 mg] 1 - 2 each PO Q6HR PRN #20 tablet 02/28/20 [Rx] Melatonin 20 mg PO BEDTIME 02/28/20 [History] Metoprolol Tartrate 50 mg PO DAILY 02/28/20 [History] Multivitamin [Multivitamins] 1 tab PO DAILY 02/28/20 [History] Tacrolimus [Prograf] 1 mg PO BID 02/28/20 [History] amLODIPine [Norvasc] 5 mg PO DAILY 02/28/20 [History] metFORMIN [Glucophage] 500 mg PO BID 02/28/20 [History] traMADol [Ultram] 50 - 100 mg PO TID PRN 02/28/20 [History] Omeprazole 20 mg PO DAILY 06/09/20 [History] Vit A/C/Biotin/Zinc/Selenometh [Biotin-Vitamin C Softgel] 1 cap PO DAILY 06/09/20 [History] Past Medical History HEENT History: Reports: Other (See Below) Other HEENT History: pt wears upper dentures Cardiovascular History: Reports: Hypertension Gastrointestinal History: Reports: Other (See Below) Other Gastrointestinal History: liver transplant; abdominal hernia repair with mesh 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: Endocrine/Metabolic History: Reports: Diabetes, Type II Oncologic (Cancer) History: Reports: Colon - Infectious Disease History Infectious Disease History: Reports: Chicken Pox, Measles, Mumps - Past Surgical History HEENT Surgical History: Reports: Tonsillectomy GI Surgical History: Reports: Appendectomy, Cholecystectomy, Colon Female Surgical History: Reports: Section, Hysterectomy Musculoskeletal Surgical History: Reports: Knee Replacement, Other (See Below) Other Musculoskeletal Surgeries/Procedures:: bilateral knee replacement Social & Family History - Tobacco Use Tobacco Use Status *Q: Former Tobacco User Used Tobacco, but Quit: Yes Month/Year Tobacco Last Used: 1979 Second Hand Smoke Exposure: No - Caffeine Use Caffeine Use: Reports: Tea Other Caffeine Use: diet - Recreational Drug Use Recreational Drug Use: No H&P Review of Systems - Review of Systems: Review Of Systems: See Below General: Reports: Weakness, Decreased Appetite HEENT: Reports: No Symptoms Cardiovascular: Reports: No Symptoms Gastrointestinal: Reports: Abdominal Pain (post surgical) Genitourinary: Reports: No Symptoms Musculoskeletal: Reports: No Symptoms Skin: Reports: No Symptoms Psychiatric: Reports: No Symptoms Exam - Exam Exam: See Below - Vital Signs Vital Signs: Last Vital Signs Temp 97.5 F 06/10/20 07:36 Pulse 71 06/10/20 07:36 Resp 16 06/10/20 07:36 BP 109/88 06/10/20 07:36 Pulse Ox 95 06/10/20 07:36 Orthostatic Blood Pressure [ 117/47 Standing] Orthostatic Blood Pressure [ 105/45 Sitting] Orthostatic Blood Pressure [ 121/43 Supine] Weight: 77.746 kg - Exam General: Alert, Oriented, Cooperative Lungs: Clear to Auscultation, Normal Respiratory Effort Cardiovascular: Regular Rate, Regular Rhythm, Normal S1, Normal S2 GI/Abdominal Exam: Soft, No Distention, Pelvis Stable, Tender (morestly on the right abdomen), Other (incisions are healing well) - Patient Data Lab Results Last 24 hrs: Laboratory Results - last 24 hr 06/09/20 06/09/20 06/09/20 Range/Units 14:50 14:50 14:50 WBC 8.42 (3.98-10.04) K/mm3 RBC 3.28 L (3.98-5.22) M/mm3 Hgb 9.6 L D (11.2-15.7) gm/dl Hct 30.3 L (34.1-44.9) % MCV 92.4 D (79.4-94.8) fl MCH 29.3 (25.6-32.2) pg MCHC 31.7 L (32.2-35.5) g/dl RDW Std Deviation 53.4 H (36.4-46.3) fL Plt Count 197 (182-369) K/mm3 MPV 9.2 L (9.4-12.3) fl Neut % (Auto) 65.5 (34.0-71.1) % Lymph % (Auto) 20.1 (19.3-51.7) % [place] % (Auto) 9.7 (4.7-12.5) % Eos % (Auto) 4.0 (0.7-5.8) Baso % (Auto) 0.2 (0.1-1.2) % Neut # (Auto) 5.51 (1.56-6.13) K/mm3 Lymph # (Auto) 1.69 (1.18-3.74) K/mm3 [place] # (Auto) 0.82 H (0.24-0.36) K/mm3 Eos # (Auto) 0.34 (0.04-0.36) K/mm3 Baso # (Auto) 0.02 (0.01-0.08) K/mm3 Sodium 140 (136-145) mEq/L Potassium 3.5 (3.5-5.1) mEq/L Chloride 105 (98-107) mEq/L Carbon Dioxide 28 (21-32) mEq/L Anion Gap 10.5 (5-15) BUN 11 (7-18) mg/dL Creatinine 1.4 H (0.55-1.02) mg/dL Est Cr Clr Drug Dosing 31.50 mL/min Estimated GFR (MDRD) 36 (>60) mL/min BUN/Creatinine Ratio 7.9 L (14-18) Glucose 133 H (83-115) mg/dL POC Glucose (83-110) mg/dL Calcium 8.7 (8.5-10.1) mg/dL Magnesium 0.8 L (1.8-2.4) mg/dl Total Bilirubin 0.9 (0.2-1.0) mg/dL AST 16 (15-37) U/L ALT 13 L (14-59) U/L Alkaline Phosphatase 57 (46-116) U/L C-Reactive Protein 3.6 H* (<1.0) mg/dL Total Protein 5.9 L (6.4-8.2) g/dl Albumin 2.4 L (3.4-5.0) g/dl Globulin 3.5 gm/dL Albumin/Globulin Ratio 0.7 L (1-2) Urine Color (Yellow) Urine Appearance (Clear) Urine pH (5.0-8.0) Ur Specific [place] (1.005-1.030) Urine Protein (Negative) Urine Glucose (UA) (Negative) Urine Ketones (Negative) Urine Occult Blood (Negative) Urine Nitrite (Negative) Urine Bilirubin (Negative) Urine Urobilinogen (0.2-1.0) Ur Leukocyte Esterase (Negative) SARS-CoV-2 RNA (NAVEED) (NEGATIVE) 06/09/20 06/10/20 06/10/20 Range/Units 17:00 05:30 05:30 WBC 4.90 (3.98-10.04) K/mm3 RBC 2.80 L (3.98-5.22) M/mm3 Hgb 8.2 L (11.2-15.7) gm/dl Hct 26.1 L (34.1-44.9) % MCV 93.2 (79.4-94.8) fl MCH 29.3 (25.6-32.2) pg MCHC 31.4 L (32.2-35.5) g/dl RDW Std Deviation 53.8 H (36.4-46.3) fL Plt Count 127 L (182-369) K/mm3 MPV 9.5 (9.4-12.3) fl Neut % (Auto) 53.7 (34.0-71.1) % Lymph % (Auto) 28.2 (19.3-51.7) % [place] % (Auto) 11.4 (4.7-12.5) % Eos % (Auto) 5.9 H (0.7-5.8) Baso % (Auto) 0.4 (0.1-1.2) % Neut # (Auto) 2.63 (1.56-6.13) K/mm3 Lymph # (Auto) 1.38 (1.18-3.74) K/mm3 [place] # (Auto) 0.56 H (0.24-0.36) K/mm3 Eos # (Auto) 0.29 (0.04-0.36) K/mm3 Baso # (Auto) 0.02 (0.01-0.08) K/mm3 Sodium 143 (136-145) mEq/L Potassium 3.8 (3.5-5.1) mEq/L Chloride 108 H (98-107) mEq/L Carbon Dioxide 27 (21-32) mEq/L Anion Gap 11.8 (5-15) BUN 11 (7-18) mg/dL Creatinine 1.0 (0.55-1.02) mg/dL Est Cr Clr Drug Dosing 44.10 mL/min Estimated GFR (MDRD) 54 (>60) mL/min BUN/Creatinine Ratio 11.0 L (14-18) Glucose 95 (83-115) mg/dL POC Glucose (83-110) mg/dL Calcium 8.2 L (8.5-10.1) mg/dL Magnesium 1.4 L (1.8-2.4) mg/dl Total Bilirubin (0.2-1.0) mg/dL AST (15-37) U/L ALT (14-59) U/L Alkaline Phosphatase (46-116) U/L C-Reactive Protein (<1.0) mg/dL Total Protein (6.4-8.2) g/dl Albumin (3.4-5.0) g/dl Globulin gm/dL Albumin/Globulin Ratio (1-2) Urine Color (Yellow) Urine Appearance (Clear) Urine pH (5.0-8.0) Ur Specific [place] (1.005-1.030) Urine Protein (Negative) Urine Glucose (UA) (Negative) Urine Ketones (Negative) Urine Occult Blood (Negative) Urine Nitrite (Negative) Urine Bilirubin (Negative) Urine Urobilinogen (0.2-1.0) Ur Leukocyte Esterase (Negative) SARS-CoV-2 RNA (NAVEED) Negative (NEGATIVE) 06/10/20 06/10/20 Range/Units 06:10 06:15 WBC (3.98-10.04) K/mm3 RBC (3.98-5.22) M/mm3 Hgb (11.2-15.7) gm/dl Hct (34.1-44.9) % MCV (79.4-94.8) fl MCH (25.6-32.2) pg MCHC (32.2-35.5) g/dl RDW Std Deviation (36.4-46.3) fL Plt Count (182-369) K/mm3 MPV (9.4-12.3) fl Neut % (Auto) (34.0-71.1) % Lymph % (Auto) (19.3-51.7) % [place] % (Auto) (4.7-12.5) % Eos % (Auto) (0.7-5.8) Baso % (Auto) (0.1-1.2) % Neut # (Auto) (1.56-6.13) K/mm3 Lymph # (Auto) (1.18-3.74) K/mm3 [place] # (Auto) (0.24-0.36) K/mm3 Eos # (Auto) (0.04-0.36) K/mm3 Baso # (Auto) (0.01-0.08) K/mm3 Sodium (136-145) mEq/L Potassium (3.5-5.1) mEq/L Chloride (98-107) mEq/L Carbon Dioxide (21-32) mEq/L Anion Gap (5-15) BUN (7-18) mg/dL Creatinine (0.55-1.02) mg/dL Est Cr Clr Drug Dosing mL/min Estimated GFR (MDRD) (>60) mL/min BUN/Creatinine Ratio (14-18) Glucose (83-115) mg/dL POC Glucose 99 (83-110) mg/dL Calcium (8.5-10.1) mg/dL Magnesium (1.8-2.4) mg/dl Total Bilirubin (0.2-1.0) mg/dL AST (15-37) U/L ALT (14-59) U/L Alkaline Phosphatase (46-116) U/L C-Reactive Protein (<1.0) mg/dL Total Protein (6.4-8.2) g/dl Albumin (3.4-5.0) g/dl Globulin gm/dL Albumin/Globulin Ratio (1-2) Urine Color Yellow (Yellow) Urine Appearance Clear (Clear) Urine pH 5.5 (5.0-8.0) Ur Specific [place] 1.020 (1.005-1.030) Urine Protein Trace H (Negative) Urine Glucose (UA) Negative (Negative) Urine Ketones Negative (Negative) Urine Occult Blood Negative (Negative) Urine Nitrite Negative (Negative) Urine Bilirubin Negative (Negative) Urine Urobilinogen 0.2 (0.2-1.0) Ur Leukocyte Esterase Trace H (Negative) SARS-CoV-2 RNA (NAVEED) (NEGATIVE) Result Diagrams: 06/10/20 05:30 06/10/20 05:30 Sepsis Event Note - Evaluation Sepsis Screening Result: No Definite Risk - Focused Exam Vital Signs: Vital Signs Temp Pulse Resp BP Pulse Ox 06/10/20 07:36 97.5 F 71 16 109/88 95 06/10/20 03:34 97.5 F 71 12 110/64 93 L 06/10/20 00:47 97.5 F 68 16 127/82 93 L Consult PN Assessment/Plan Procedures: Procedures ASSAY OF LIPASE (02/28/20) COMPLETE CBC W/AUTO DIFF WBC (02/28/20) COMPREHEN METABOLIC PANEL (02/28/20) EMERGENCY DEPT VISIT (02/28/20) ROUTINE VENIPUNCTURE (02/28/20) X-RAY EXAM COMPLETE ABDOMEN (02/28/20) Problem List Initiated/Reviewed/Updated: No Plan: Patient is 10 days from a right hemicolectomy with anastomosis for colon cancer. Admitted for weakness, loss of appetite, failure to thrive. CT shows infla mmatory change on right abdomen involving small bowel. Enteritis picture. This is likely post operative. - Check and correct electrolyte imbalance - Mag to ~2, Phos to ~3, K to ~4 - Gentle hydration with IVF as the patient is likely dehydrated from loss of appetite - Pain control as needed - Ambulation TID - Ok to continue reg diet - PT/OT Will continue to follow along
--- NOTE | 2020-06-10 14:05 | PCM.PN ---
<Genna Ansari - Last Filed: 06/10/20 14:35> - General Info Date of Service: 06/10/20 Admission Dx/Problem (Free Text): Admission Diagnosis/Problem Admission Diagnosis/Problem Hypomagnesemia/weakness/post op partial colectomy Subjective Update: Patient was admitted for Hypomagnesemia/weakness/post op partial colectomy Patient states she feels stronger today Patient states she slept okay She has a good appetite and ate breakfast Her stomach is folding machine tender She is getting good pain relief with the pain medications She denies having a bowel movement this morning She denies cough, dyspnea, or nausea Functional Status: Reports: Pain Controlled - Review of Systems General: Reports: Weakness HEENT: Reports: No Symptoms Pulmonary: Reports: No Symptoms Cardiovascular: Reports: No Symptoms Gastrointestinal: Reports: Abdominal Pain, Decreased Appetite. Denies: Diarrhea, Melena, Nausea, Vomiting Genitourinary: Reports: No Symptoms Musculoskeletal: Reports: No Symptoms Skin: Reports: No Symptoms Neurological: Reports: No Symptoms Psychiatric: Reports: No Symptoms - Patient Data Vitals - Most Recent: Last Vital Signs Temp 97.5 F 06/10/20 07:36 Pulse 71 06/10/20 07:36 Resp 16 06/10/20 07:36 BP 109/88 06/10/20 07:36 Pulse Ox 95 06/10/20 07:36 Orthostatic Blood Pressure [ 117/47 Standing] Orthostatic Blood Pressure [ 105/45 Sitting] Orthostatic Blood Pressure [ 121/43 Supine] Weight - Most Recent: 77.746 kg I&O - Last 24 Hours: Intake & Output 06/09/20 06/10/20 06/10/20 22:59 06:59 14:59 Intake Total 770 120 Output Total 200 Balance 570 120 Lab Results Last 24 Hours: Laboratory Results - last 24 hr 06/09/20 06/09/20 06/09/20 Range/Units 14:50 14:50 14:50 WBC 8.42 (3.98-10.04) K/mm3 RBC 3.28 L (3.98-5.22) M/mm3 Hgb 9.6 L D (11.2-15.7) gm/dl Hct 30.3 L (34.1-44.9) % MCV 92.4 D (79.4-94.8) fl MCH 29.3 (25.6-32.2) pg MCHC 31.7 L (32.2-35.5) g/dl RDW Std Deviation 53.4 H (36.4-46.3) fL Plt Count 197 (182-369) K/mm3 MPV 9.2 L (9.4-12.3) fl Neut % (Auto) 65.5 (34.0-71.1) % Lymph % (Auto) 20.1 (19.3-51.7) % [place] % (Auto) 9.7 (4.7-12.5) % Eos % (Auto) 4.0 (0.7-5.8) Baso % (Auto) 0.2 (0.1-1.2) % Neut # (Auto) 5.51 (1.56-6.13) K/mm3 Lymph # (Auto) 1.69 (1.18-3.74) K/mm3 [place] # (Auto) 0.82 H (0.24-0.36) K/mm3 Eos # (Auto) 0.34 (0.04-0.36) K/mm3 Baso # (Auto) 0.02 (0.01-0.08) K/mm3 Sodium 140 (136-145) mEq/L Potassium 3.5 (3.5-5.1) mEq/L Chloride 105 (98-107) mEq/L Carbon Dioxide 28 (21-32) mEq/L Anion Gap 10.5 (5-15) BUN 11 (7-18) mg/dL Creatinine 1.4 H (0.55-1.02) mg/dL Est Cr Clr Drug Dosing 31.50 mL/min Estimated GFR (MDRD) 36 (>60) mL/min BUN/Creatinine Ratio 7.9 L (14-18) Glucose 133 H (83-115) mg/dL POC Glucose (83-110) mg/dL Calcium 8.7 (8.5-10.1) mg/dL Phosphorus (2.6-4.7) mg/dL Magnesium 0.8 L (1.8-2.4) mg/dl Total Bilirubin 0.9 (0.2-1.0) mg/dL AST 16 (15-37) U/L ALT 13 L (14-59) U/L Alkaline Phosphatase 57 (46-116) U/L C-Reactive Protein 3.6 H* (<1.0) mg/dL Total Protein 5.9 L (6.4-8.2) g/dl Albumin 2.4 L (3.4-5.0) g/dl Globulin 3.5 gm/dL Albumin/Globulin Ratio 0.7 L (1-2) Urine Color (Yellow) Urine Appearance (Clear) Urine pH (5.0-8.0) Ur Specific [place] (1.005-1.030) Urine Protein (Negative) Urine Glucose (UA) (Negative) Urine Ketones (Negative) Urine Occult Blood (Negative) Urine Nitrite (Negative) Urine Bilirubin (Negative) Urine Urobilinogen (0.2-1.0) Ur Leukocyte Esterase (Negative) SARS-CoV-2 RNA (NAVEED) (NEGATIVE) 06/09/20 06/10/20 06/10/20 Range/Units 17:00 05:30 05:30 WBC 4.90 (3.98-10.04) K/mm3 RBC 2.80 L (3.98-5.22) M/mm3 Hgb 8.2 L (11.2-15.7) gm/dl Hct 26.1 L (34.1-44.9) % MCV 93.2 (79.4-94.8) fl MCH 29.3 (25.6-32.2) pg MCHC 31.4 L (32.2-35.5) g/dl RDW Std Deviation 53.8 H (36.4-46.3) fL Plt Count 127 L (182-369) K/mm3 MPV 9.5 (9.4-12.3) fl Neut % (Auto) 53.7 (34.0-71.1) % Lymph % (Auto) 28.2 (19.3-51.7) % [place] % (Auto) 11.4 (4.7-12.5) % Eos % (Auto) 5.9 H (0.7-5.8) Baso % (Auto) 0.4 (0.1-1.2) % Neut # (Auto) 2.63 (1.56-6.13) K/mm3 Lymph # (Auto) 1.38 (1.18-3.74) K/mm3 [place] # (Auto) 0.56 H (0.24-0.36) K/mm3 Eos # (Auto) 0.29 (0.04-0.36) K/mm3 Baso # (Auto) 0.02 (0.01-0.08) K/mm3 Sodium 143 (136-145) mEq/L Potassium 3.8 (3.5-5.1) mEq/L Chloride 108 H (98-107) mEq/L Carbon Dioxide 27 (21-32) mEq/L Anion Gap 11.8 (5-15) BUN 11 (7-18) mg/dL Creatinine 1.0 (0.55-1.02) mg/dL Est Cr Clr Drug Dosing 44.10 mL/min Estimated GFR (MDRD) 54 (>60) mL/min BUN/Creatinine Ratio 11.0 L (14-18) Glucose 95 (83-115) mg/dL POC Glucose (83-110) mg/dL Calcium 8.2 L (8.5-10.1) mg/dL Phosphorus (2.6-4.7) mg/dL Magnesium 1.4 L (1.8-2.4) mg/dl Total Bilirubin (0.2-1.0) mg/dL AST (15-37) U/L ALT (14-59) U/L Alkaline Phosphatase (46-116) U/L C-Reactive Protein (<1.0) mg/dL Total Protein (6.4-8.2) g/dl Albumin (3.4-5.0) g/dl Globulin gm/dL Albumin/Globulin Ratio (1-2) Urine Color (Yellow) Urine Appearance (Clear) Urine pH (5.0-8.0) Ur Specific [place] (1.005-1.030) Urine Protein (Negative) Urine Glucose (UA) (Negative) Urine Ketones (Negative) Urine Occult Blood (Negative) Urine Nitrite (Negative) Urine Bilirubin (Negative) Urine Urobilinogen (0.2-1.0) Ur Leukocyte Esterase (Negative) SARS-CoV-2 RNA (NAVEED) Negative (NEGATIVE) 06/10/20 06/10/20 06/10/20 Range/Units 05:30 06:10 06:15 WBC (3.98-10.04) K/mm3 RBC (3.98-5.22) M/mm3 Hgb (11.2-15.7) gm/dl Hct (34.1-44.9) % MCV (79.4-94.8) fl MCH (25.6-32.2) pg MCHC (32.2-35.5) g/dl RDW Std Deviation (36.4-46.3) fL Plt Count (182-369) K/mm3 MPV (9.4-12.3) fl Neut % (Auto) (34.0-71.1) % Lymph % (Auto) (19.3-51.7) % [place] % (Auto) (4.7-12.5) % Eos % (Auto) (0.7-5.8) Baso % (Auto) (0.1-1.2) % Neut # (Auto) (1.56-6.13) K/mm3 Lymph # (Auto) (1.18-3.74) K/mm3 [place] # (Auto) (0.24-0.36) K/mm3 Eos # (Auto) (0.04-0.36) K/mm3 Baso # (Auto) (0.01-0.08) K/mm3 Sodium (136-145) mEq/L Potassium (3.5-5.1) mEq/L Chloride (98-107) mEq/L Carbon Dioxide (21-32) mEq/L Anion Gap (5-15) BUN (7-18) mg/dL Creatinine (0.55-1.02) mg/dL Est Cr Clr Drug Dosing mL/min Estimated GFR (MDRD) (>60) mL/min BUN/Creatinine Ratio (14-18) Glucose (83-115) mg/dL POC Glucose 99 (83-110) mg/dL Calcium (8.5-10.1) mg/dL Phosphorus 3.2 (2.6-4.7) mg/dL Magnesium (1.8-2.4) mg/dl Total Bilirubin (0.2-1.0) mg/dL AST (15-37) U/L ALT (14-59) U/L Alkaline Phosphatase (46-116) U/L C-Reactive Protein (<1.0) mg/dL Total Protein (6.4-8.2) g/dl Albumin (3.4-5.0) g/dl Globulin gm/dL Albumin/Globulin Ratio (1-2) Urine Color Yellow (Yellow) Urine Appearance Clear (Clear) Urine pH 5.5 (5.0-8.0) Ur Specific [place] 1.020 (1.005-1.030) Urine Protein Trace H (Negative) Urine Glucose (UA) Negative (Negative) Urine Ketones Negative (Negative) Urine Occult Blood Negative (Negative) Urine Nitrite Negative (Negative) Urine Bilirubin Negative (Negative) Urine Urobilinogen 0.2 (0.2-1.0) Ur Leukocyte Esterase Trace H (Negative) SARS-CoV-2 RNA (NAVEED) (NEGATIVE) Med Orders - Current: Current Medications Acetaminophen (Tylenol) 650 mg PO Q4H PRN PRN Reason: Pain (Mild 1-3)/fever Last Admin: 06/09/20 22:26 Dose: 650 mg Documented by: Hydrocodone Bitart/Acetaminophen ([place] 325-5 Mg) 2 tab PO Q4H PRN PRN Reason: Pain (moderate 4-6) Last Admin: 06/10/20 11:27 Dose: 2 tab Documented by: Enoxaparin Sodium (Lovenox) 30 mg SUBCUT DAILY [facility] Last Admin: 06/10/20 08:23 Dose: 30 mg Documented by: Lactated Ringer's (Ringers, Lactated) 1,000 mls @ 50 mls/hr IV ASDIRECTED [facility] Last Admin: 06/09/20 21:01 Dose: 50 mls/hr Documented by: Loperamide HCl (Imodium) 6 mg PO Q12H PRN PRN Reason: Diarrhea Last Admin: 06/09/20 22:23 Dose: 6 mg Documented by: Melatonin (Melatonin) 18 mg PO BEDTIME PRN PRN Reason: Insomnia Last Admin: 06/09/20 22:22 Dose: 18 mg Documented by: Pantoprazole Sodium (Protonix) 40 mg PO DAILY@0700 [facility] Last Admin: 06/10/20 06:05 Dose: 40 mg Documented by: Potassium Chloride (Klor-Con M20) 20 meq PO DAILY [facility] Stop: 06/12/20 09:01 Last Admin: 06/10/20 08:23 Dose: 20 meq Documented by: Promethazine HCl (Phenergan) 25 mg PO Q6H PRN PRN Reason: Nausea/Vomiting Sodium Chloride (Saline Flush) 10 ml FLUSH ONETIME PRN PRN Reason: IV FLUSH Last Admin: 06/09/20 14:50 Dose: 10 ml Documented by: Tacrolimus (Prograf) 1 mg PO BID VIRGILIO Last Admin: 06/10/20 10:15 Dose: 1 mg Documented by: Discontinued Medications Sodium Chloride (Normal Saline) 1,000 mls @ 999 mls/hr IV ONETIME ONE Stop: 06/09/20 15:55 Last Admin: 06/09/20 15:54 Dose: 999 mls/hr Documented by: Magnesium Sulfate 4 gm/ Premix 50 mls @ 12.5 mls/hr IV ONETIME ONE Stop: 06/09/20 19:51 Last Admin: 06/09/20 16:28 Dose: 12.5 mls/hr Documented by: Magnesium Sulfate 4 gm/ Premix 50 mls @ 12.5 mls/hr IV ONETIME ONE Stop: 06/10/20 13:06 Last Admin: 06/10/20 10:14 Dose: 12.5 mls/hr Documented by: Iopamidol (Isovue-300 (61%)) 100 ml IVPUSH ONETIME ONE Stop: 06/09/20 15:26 Last Admin: 06/09/20 15:43 Dose: 100 ml Documented by: Non-Formulary Medication (Melatonin [Melatonin]) 20 mg PO BEDTIME VIRGILIO Potassium Chloride (Klor-Con M20) 40 meq PO ONETIME ONE Stop: 06/09/20 15:53 Last Admin: 06/09/20 16:26 Dose: 40 meq Documented by: - Exam General: Alert, Oriented Neck: Supple Lungs: Clear to Auscultation, Normal Respiratory Effort Cardiovascular: Regular Rate, Regular Rhythm GI/Abdominal Exam: Normal Bowel Sounds, Other (tender right abdomen ) Back Exam: Normal Inspection, Full Range of Motion Extremities: Normal Inspection Skin: Warm, Dry, Intact Wound/Incisions: Healing Well Neurological: No New Focal Deficit Psy/Mental Status: Alert, Normal Affect, Normal Mood Sepsis Event Note - Evaluation Sepsis Screening Result: No Definite Risk - Focused Exam Vital Signs: Vital Signs Temp Pulse Resp BP Pulse Ox 06/10/20 07:36 97.5 F 71 16 109/88 95 06/10/20 03:34 97.5 F 71 12 110/64 93 L - Problem List & Annotations (1) Dehydration SNOMED Code(s): 95125152 Code(s): E86.0 - DEHYDRATION Status: Acute Priority: Medium Current Visit: Yes Onset Date: ~06/09/20 Annotation/Comment:: Blood pressure and heart rate have been trending up and have been stable since admission. Will continuing monitoring for signs of dehydration (2) Hypomagnesemia SNOMED Code(s): 750973217 Code(s): E83.42 - HYPOMAGNESEMIA Status: Acute Priority: High Current Visit: Yes Onset Date: ~06/09/20 Annotation/Comment:: Magnesium has come up from 0.8 to 1.4. Will give another 4 grams of mag sulfate to increase and will reassess in the AM (3) Loose bowel movements SNOMED Code(s): 896688069 Code(s): R19.5 - OTHER FECAL ABNORMALITIES Status: Acute Priority: Low Current Visit: Yes Onset Date: ~06/09/20 Annotation/Comment:: Patient states that she has yet to have a bowel movement. This report was made this AM. Will reassess tomorrow. (4) Weakness SNOMED Code(s): 15206357 Code(s): R53.1 - WEAKNESS Status: Acute Priority: Medium Current Visit: Yes Onset Date: ~06/09/20 Annotation/Comment:: Patient states she is still weak, but is feeling stronger than yesterday. (5) Abdominal pain SNOMED Code(s): 19805235 Code(s): R10.9 - UNSPECIFIED ABDOMINAL PAIN Status: Acute Current Visit: No Qualifiers: Abdominal location: upper abdomen, unspecified Qualified Code(s): R10.10 - Upper abdominal pain, unspecified Annotation/Comment:: General surgery consulted and assessed patient. They will follow along with her care. - Assessment Assessment:: 06/10: Hypomagnesemia: -Magnesium increased from 0.8 to 1.4 from yesterday -Will give 4 grams IV 50 mLs at 12.5 mls/hr -will reassess in the morning to determine levels Dehydration: -Patient's blood pressures have increased and have been stable -Patient states she has more strength than yesterday -Will continue monitoring for dehydration symptoms Abdominal pain: -General surgery consulted and will follow her throughout hospital stay -Continue on pain medications as tolerated. - Plan Plan:: 79 year old female admitted with weakness 4 days s/p partial colectomy for colon cancer. she relates sh is having brown cottege cheese like bms today and feels very weak with abd pain in lower abd. denies fever chills rigors . no vomiting but mild nausea but eating fairly well. feels dizzy when standing. voiding well and wears depends for partial incontinence. apperent colon resection for colon cancer . previous hysterectomy . no hx of sbo by hx. not eating today and felt weak. taking pain meds but still very painful. pmh diff to get from patient all : unknown soc hx lives at home with son? nobody available for hx . verification ros negative for covid /uti chest pain /tia and or bleeding form rectum. p.e. see note. lab mg .7 hgn 9.4. lfts pending. ua pending ct scan shows edema around jujunum and colon with surgical changes and edema of bowel wall with thickening . chest xray pending. ekg pending. assess: 1) abd pain with edema and post op changes without findings of abscess seen/ will have gen. surgery see in am but appears stable. 2) /// antibiotics not clearly indicated. mild crp elavation a nd recheck labs in am . 3) pain control diff. to say but not bad in bed with current po narcotics. 4) dehydration moderate and cont i.v replacement . 5) hypomagnesemia fairly severe and will need replacement and started on i.v and p.o mag. 6)mild dementia. mild thrombocytopenia . 7) colon cancer ? stage and or prognosis not addressed . 8) weakness pt and ss and ot consulted/ needs some dietary supplements as well boh 06/10: -Give Magnesium Sulfate 4 grams IV and will reassess levels in the AM -Talked to daughter in law today and went over CT results with her. Notified her that general surgery was consulted and will follow along with her care. -Daughter in law informed me that they found a 6 cm cancerous mass in colon and has spread to lymph nodes -History of liver transplant and is on anti-rejection meds -Continue current plan of care -repeat labs in AM -Discharge in near future <Wyatt Mclaughlin - Last Filed: 06/10/20 18:42> - Patient Data Vitals - Most Recent: Last Vital Signs Temp 36.4 C 06/10/20 15:00 Pulse 80 06/10/20 15:00 Resp 20 06/10/20 15:00 BP 151/45 H 06/10/20 15:00 Pulse Ox 95 06/10/20 15:00 Orthostatic Blood Pressure [ 117/47 Standing] Orthostatic Blood Pressure [ 105/45 Sitting] Orthostatic Blood Pressure [ 121/43 Supine] I&O - Last 24 Hours: Intake & Output 06/10/20 06/10/20 06/10/20 06:59 14:59 22:59 Intake Total 770 120 800 Output Total 200 700 Balance 570 120 100 Lab Results Last 24 Hours: Laboratory Results - last 24 hr 06/09/20 06/10/20 06/10/20 Range/Units 17:00 05:30 05:30 WBC 4.90 (3.98-10.04) K/mm3 RBC 2.80 L (3.98-5.22) M/mm3 Hgb 8.2 L (11.2-15.7) gm/dl Hct 26.1 L (34.1-44.9) % MCV 93.2 (79.4-94.8) fl MCH 29.3 (25.6-32.2) pg MCHC 31.4 L (32.2-35.5) g/dl RDW Std Deviation 53.8 H (36.4-46.3) fL Plt Count 127 L (182-369) K/mm3 MPV 9.5 (9.4-12.3) fl Neut % (Auto) 53.7 (34.0-71.1) % Lymph % (Auto) 28.2 (19.3-51.7) % [place] % (Auto) 11.4 (4.7-12.5) % Eos % (Auto) 5.9 H (0.7-5.8) Baso % (Auto) 0.4 (0.1-1.2) % Neut # (Auto) 2.63 (1.56-6.13) K/mm3 Lymph # (Auto) 1.38 (1.18-3.74) K/mm3 [place] # (Auto) 0.56 H (0.24-0.36) K/mm3 Eos # (Auto) 0.29 (0.04-0.36) K/mm3 Baso # (Auto) 0.02 (0.01-0.08) K/mm3 Sodium 143 (136-145) mEq/L Potassium 3.8 (3.5-5.1) mEq/L Chloride 108 H (98-107) mEq/L Carbon Dioxide 27 (21-32) mEq/L Anion Gap 11.8 (5-15) BUN 11 (7-18) mg/dL Creatinine 1.0 (0.55-1.02) mg/dL Est Cr Clr Drug Dosing 44.10 mL/min Estimated GFR (MDRD) 54 (>60) mL/min BUN/Creatinine Ratio 11.0 L (14-18) Glucose 95 (83-115) mg/dL POC Glucose (83-110) mg/dL Calcium 8.2 L (8.5-10.1) mg/dL Phosphorus (2.6-4.7) mg/dL Magnesium 1.4 L (1.8-2.4) mg/dl Urine Color (Yellow) Urine Appearance (Clear) Urine pH (5.0-8.0) Ur Specific [place] (1.005-1.030) Urine Protein (Negative) Urine Glucose (UA) (Negative) Urine Ketones (Negative) Urine Occult Blood (Negative) Urine Nitrite (Negative) Urine Bilirubin (Negative) Urine Urobilinogen (0.2-1.0) Ur Leukocyte Esterase (Negative) SARS-CoV-2 RNA (NAVEED) Negative (NEGATIVE) 06/10/20 06/10/20 06/10/20 Range/Units 05:30 06:10 06:15 WBC (3.98-10.04) K/mm3 RBC (3.98-5.22) M/mm3 Hgb (11.2-15.7) gm/dl Hct (34.1-44.9) % MCV (79.4-94.8) fl MCH (25.6-32.2) pg MCHC (32.2-35.5) g/dl RDW Std Deviation (36.4-46.3) fL Plt Count (182-369) K/mm3 MPV (9.4-12.3) fl Neut % (Auto) (34.0-71.1) % Lymph % (Auto) (19.3-51.7) % [place] % (Auto) (4.7-12.5) % Eos % (Auto) (0.7-5.8) Baso % (Auto) (0.1-1.2) % Neut # (Auto) (1.56-6.13) K/mm3 Lymph # (Auto) (1.18-3.74) K/mm3 [place] # (Auto) (0.24-0.36) K/mm3 Eos # (Auto) (0.04-0.36) K/mm3 Baso # (Auto) (0.01-0.08) K/mm3 Sodium (136-145) mEq/L Potassium (3.5-5.1) mEq/L Chloride (98-107) mEq/L Carbon Dioxide (21-32) mEq/L Anion Gap (5-15) BUN (7-18) mg/dL Creatinine (0.55-1.02) mg/dL Est Cr Clr Drug Dosing mL/min Estimated GFR (MDRD) (>60) mL/min BUN/Creatinine Ratio (14-18) Glucose (83-115) mg/dL POC Glucose 99 (83-110) mg/dL Calcium (8.5-10.1) mg/dL Phosphorus 3.2 (2.6-4.7) mg/dL Magnesium (1.8-2.4) mg/dl Urine Color Yellow (Yellow) Urine Appearance Clear (Clear) Urine pH 5.5 (5.0-8.0) Ur Specific [place] 1.020 (1.005-1.030) Urine Protein Trace H (Negative) Urine Glucose (UA) Negative (Negative) Urine Ketones Negative (Negative) Urine Occult Blood Negative (Negative) Urine Nitrite Negative (Negative) Urine Bilirubin Negative (Negative) Urine Urobilinogen 0.2 (0.2-1.0) Ur Leukocyte Esterase Trace H (Negative) SARS-CoV-2 RNA (NAVEED) (NEGATIVE) 06/10/20 06/10/20 Range/Units 10:41 16:50 WBC (3.98-10.04) K/mm3 RBC (3.98-5.22) M/mm3 Hgb (11.2-15.7) gm/dl Hct (34.1-44.9) % MCV (79.4-94.8) fl MCH (25.6-32.2) pg MCHC (32.2-35.5) g/dl RDW Std Deviation (36.4-46.3) fL Plt Count (182-369) K/mm3 MPV (9.4-12.3) fl Neut % (Auto) (34.0-71.1) % Lymph % (Auto) (19.3-51.7) % [place] % (Auto) (4.7-12.5) % Eos % (Auto) (0.7-5.8) Baso % (Auto) (0.1-1.2) % Neut # (Auto) (1.56-6.13) K/mm3 Lymph # (Auto) (1.18-3.74) K/mm3 [place] # (Auto) (0.24-0.36) K/mm3 Eos # (Auto) (0.04-0.36) K/mm3 Baso # (Auto) (0.01-0.08) K/mm3 Sodium (136-145) mEq/L Potassium (3.5-5.1) mEq/L Chloride (98-107) mEq/L Carbon Dioxide (21-32) mEq/L Anion Gap (5-15) BUN (7-18) mg/dL Creatinine (0.55-1.02) mg/dL Est Cr Clr Drug Dosing mL/min Estimated GFR (MDRD) (>60) mL/min BUN/Creatinine Ratio (14-18) Glucose (83-115) mg/dL POC Glucose 131 H 131 H (83-110) mg/dL Calcium (8.5-10.1) mg/dL Phosphorus (2.6-4.7) mg/dL Magnesium (1.8-2.4) mg/dl Urine Color (Yellow) Urine Appearance (Clear) Urine pH (5.0-8.0) Ur Specific [place] (1.005-1.030) Urine Protein (Negative) Urine Glucose (UA) (Negative) Urine Ketones (Negative) Urine Occult Blood (Negative) Urine Nitrite (Negative) Urine Bilirubin (Negative) Urine Urobilinogen (0.2-1.0) Ur Leukocyte Esterase (Negative) SARS-CoV-2 RNA (NAVEED) (NEGATIVE) Med Orders - Current: Current Medications Acetaminophen (Tylenol) 650 mg PO Q4H PRN PRN Reason: Pain (Mild 1-3)/fever Last Admin: 06/09/20 22:26 Dose: 650 mg Documented by: Hydrocodone Bitart/Acetaminophen ([place] 325-5 Mg) 2 tab PO Q4H PRN PRN Reason: Pain (moderate 4-6) Last Admin: 06/10/20 11:27 Dose: 2 tab Documented by: Enoxaparin Sodium (Lovenox) 30 mg SUBCUT DAILY [facility] Last Admin: 06/10/20 08:23 Dose: 30 mg Documented by: Lactated Ringer's (Ringers, Lactated) 1,000 mls @ 50 mls/hr IV ASDIRECTED [facility] Last Admin: 06/10/20 16:22 Dose: 50 mls/hr Documented by: Magnesium Sulfate 4 gm/ Premix 50 mls @ 12.5 mls/hr IV ONETIME ONE Stop: 06/10/20 18:32 Last Admin: 06/10/20 17:24 Dose: Not Given Documented by: Loperamide HCl (Imodium) 6 mg PO Q12H PRN PRN Reason: Diarrhea Last Admin: 06/09/20 22:23 Dose: 6 mg Documented by: Melatonin (Melatonin) 18 mg PO BEDTIME PRN PRN Reason: Insomnia Last Admin: 06/09/20 22:22 Dose: 18 mg Documented by: Pantoprazole Sodium (Protonix) 40 mg PO DAILY@0700 [facility] Last Admin: 06/10/20 06:05 Dose: 40 mg Documented by: Potassium Chloride (Klor-Con M20) 20 meq PO DAILY [facility] Stop: 06/12/20 09:01 Last Admin: 06/10/20 08:23 Dose: 20 meq Documented by: Promethazine HCl (Phenergan) 25 mg PO Q6H PRN PRN Reason: Nausea/Vomiting Sodium Chloride (Saline Flush) 10 ml FLUSH ONETIME PRN PRN Reason: IV FLUSH Last Admin: 06/09/20 14:50 Dose: 10 ml Documented by: Tacrolimus (Prograf) 1 mg PO BID [facility] Last Admin: 06/10/20 10:15 Dose: 1 mg Documented by: Discontinued Medications Sodium Chloride (Normal Saline) 1,000 mls @ 999 mls/hr IV ONETIME ONE Stop: 06/09/20 15:55 Last Admin: 06/09/20 15:54 Dose: 999 mls/hr Documented by: Magnesium Sulfate 4 gm/ Premix 50 mls @ 12.5 mls/hr IV ONETIME ONE Stop: 06/09/20 19:51 Last Admin: 06/09/20 16:28 Dose: 12.5 mls/hr Documented by: Magnesium Sulfate 4 gm/ Premix 50 mls @ 12.5 mls/hr IV ONETIME ONE Stop: 06/10/20 13:06 Last Admin: 06/10/20 10:14 Dose: 12.5 mls/hr Documented by: Iopamidol (Isovue-300 (61%)) 100 ml IVPUSH ONETIME ONE Stop: 06/09/20 15:26 Last Admin: 06/09/20 15:43 Dose: 100 ml Documented by: Non-Formulary Medication (Melatonin [Melatonin]) 20 mg PO BEDTIME VIRGILIO Potassium Chloride (Klor-Con M20) 40 meq PO ONETIME ONE Stop: 06/09/20 15:53 Last Admin: 06/09/20 16:26 Dose: 40 meq Documented by: Sepsis Event Note - Focused Exam Vital Signs: Vital Signs Temp Pulse Resp BP Pulse Ox 06/10/20 15:00 36.4 C 80 20 151/45 H 95 06/10/20 12:00 36.3 C 78 18 138/55 L 95 06/10/20 07:36 36.4 C 71 16 109/88 95 - Problem List & Annotations (1) Hypomagnesemia SNOMED Code(s): 780085676 Code(s): E83.42 - HYPOMAGNESEMIA Status: Acute Priority: High Current Visit: Yes Onset Date: ~06/09/20 Annotation/Comment:: Magnesium has come up from 0.8 to 1.4. Will give another 4 grams of mag sulfate to increase and will reassess in the AM (2) Dehydration SNOMED Code(s): 85161258 Code(s): E86.0 - DEHYDRATION Status: Acute Priority: Medium Current Visit: Yes Onset Date: ~06/09/20 Annotation/Comment:: Blood pressure and heart rate have been trending up and have been stable since admission. Will continuing monitoring for signs of dehydration (3) Weakness SNOMED Code(s): 97447881 Code(s): R53.1 - WEAKNESS Status: Acute Priority: Medium Current Visit: Yes Onset Date: ~06/09/20 Annotation/Comment:: Patient states she is still weak, but is feeling stronger than yesterday. (4) Loose bowel movements SNOMED Code(s): 124512366 Code(s): R19.5 - OTHER FECAL ABNORMALITIES Status: Acute Priority: Low Current Visit: Yes Onset Date: ~06/09/20 Annotation/Comment:: Patient states that she has yet to have a bowel movement. This report was made this AM. Will reassess tomorrow. - Problem List Review Problem List Initiated/Reviewed/Updated: Yes - My Orders Last 24 Hours: My Active Orders 06/09/20 17:50 Blood Glucose Check, Bedside [RC] TIDMEALS Up to Chair [RC] BID Consult to Case Management/Front Desk Administrator [CONS] Routine OT Evaluation and Treatment [CONS] Routine PT Evaluation and Treatment [CONS] Routine Acetaminophen [TylenoL] 650 mg PO Q4H PRN Acetaminophen/HYDROcodone [Sweeden 325-5 MG] 2 tab PO Q4H PRN Promethazine [Phenergan] 25 mg PO Q6H PRN Resuscitation Status Routine 06/09/20 17:53 Oxygen Therapy [RC] PRN VTE/DVT Education [RC] PER UNIT ROUTINE Vital Signs [RC] Q4HR 06/09/20 17:55 Intake and Output [RC] 04,16 06/09/20 17:58 Pulse Oximetry [RC] PRN Antiembolic Hose [OM.PC] Per Unit Routine 06/09/20 17:59 Antiembolic Devices [RC] PER UNIT ROUTINE 06/09/20 18:00 Lactated Ringers [Ringers, Lactated] 1,000 ml IV ASDIRECTED 06/09/20 21:00 Tacrolimus [Prograf] 1 mg PO BID 06/09/20 21:27 Loperamide [Imodium] 6 mg PO Q12H PRN 06/09/20 21:59 Melatonin 18 mg PO BEDTIME PRN 06/10/20 07:00 Pantoprazole [ProTONIX] 40 mg PO DAILY@0700 06/10/20 09:00 Enoxaparin [Lovenox] 30 mg SUBCUT DAILY Potassium Chloride [Klor-Con M20] 20 meq PO DAILY 06/11/20 05:11 MAGNESIUM [CHEM] AM 06/12/20 05:11 MAGNESIUM [CHEM] AM - Plan Plan:: 06/10/20 patient having some pain despite oral narcotics but not nauseated this am / ate breakfast. / hydration appears back to normal and will stop i.v. / gen surgery monitoring progress / abd picture /ct scan and no signs i nfection postop . mild atelectasis suspected /will try to get up and out of bed. boh
[2020-06-10] MEDS: Lactated Ringers 1,000 ML IV SCH (16:22)
[2020-06-10] MEDS: Melatonin 3 MG Tab PO PRN (20:07)
[2020-06-10] MEDS ORDERED: Non-Formulary Medication 1 Each (Melatonin [Melatonin] 20 MG) PO SCH (21:00)
[2020-06-11] MEDS: Pantoprazole 40 MG Tab.CR PO SCH ×2 (05:52→06:03)
[2020-06-11] MEDS: Enoxaparin 30 MG/0.3 ML Syringe SUBCUT SCH (08:30)
[2020-06-11] MEDS: Potassium Chloride 20 MEQ Tab.ER PO SCH (08:30)
[2020-06-11] MEDS: Tacrolimus 1 MG Cap PO SCH (08:31)
[2020-06-11] MEDS ORDERED: Magnesium Sulfate/Water 4 GM in Premix Bag 1 BAG IV ONE (08:40)
--- NOTE | 2020-06-11 10:37 | PCM.PN ---
- General Info Date of Service: 06/11/20 Admission Dx/Problem (Free Text): Admission Diagnosis/Problem Admission Diagnosis/Problem Hypomagnesemia/weakness/post op partial colectomy Subjective Update: 06/10: Patient was admitted for Hypomagnesemia/weakness/post op partial colectomy Patient states she feels stronger today Patient states she slept okay She has a good appetite and ate breakfast Her stomach is dehydrator tender She is getting good pain relief with the pain medications She denies having a bowel movement this morning She denies cough, dyspnea, or nausea 06/11: Patient is doing well this morning and is anxious to get home. She states she feels stronger but remains mildly weak She has a good appetite and is eating She states she has little to no pain and overall feels back to normal. She denies fever, chills, nausea, vomiting Functional Status: Reports: Pain Controlled, Tolerating Diet, Ambulating, Urinating - Review of Systems General: Reports: No Symptoms HEENT: Reports: No Symptoms Pulmonary: Reports: No Symptoms Cardiovascular: Reports: No Symptoms Gastrointestinal: Reports: No Symptoms Genitourinary: Reports: No Symptoms Musculoskeletal: Reports: No Symptoms Skin: Reports: No Symptoms Neurological: Reports: No Symptoms Psychiatric: Reports: No Symptoms - Patient Data Vitals - Most Recent: Last Vital Signs Temp 97.9 F 06/11/20 07:25 Pulse 75 06/11/20 07:25 Resp 16 06/11/20 07:25 BP 129/70 06/11/20 07:25 Pulse Ox 98 06/11/20 07:25 Orthostatic Blood Pressure [ 117/47 Standing] Orthostatic Blood Pressure [ 105/45 Sitting] Orthostatic Blood Pressure [ 121/43 Supine] Weight - Most Recent: 173 lb 9.6 oz I&O - Last 24 Hours: Intake & Output 06/10/20 06/11/20 06/11/20 22:59 06:59 14:59 Intake Total 1801 1014 Output Total 700 400 Balance 1101 614 Lab Results Last 24 Hours: Laboratory Results - last 24 hr 06/10/20 06/10/20 06/10/20 Range/Units 05:30 10:41 16:50 WBC (3.98-10.04) K/mm3 RBC (3.98-5.22) M/mm3 Hgb (11.2-15.7) gm/dl Hct (34.1-44.9) % MCV (79.4-94.8) fl MCH (25.6-32.2) pg MCHC (32.2-35.5) g/dl RDW Std Deviation (36.4-46.3) fL Plt Count (182-369) K/mm3 MPV (9.4-12.3) fl Neut % (Auto) (34.0-71.1) % Lymph % (Auto) (19.3-51.7) % [place] % (Auto) (4.7-12.5) % Eos % (Auto) (0.7-5.8) Baso % (Auto) (0.1-1.2) % Neut # (Auto) (1.56-6.13) K/mm3 Lymph # (Auto) (1.18-3.74) K/mm3 [place] # (Auto) (0.24-0.36) K/mm3 Eos # (Auto) (0.04-0.36) K/mm3 Baso # (Auto) (0.01-0.08) K/mm3 Sodium (136-145) mEq/L Potassium (3.5-5.1) mEq/L Chloride (98-107) mEq/L Carbon Dioxide (21-32) mEq/L Anion Gap (5-15) BUN (7-18) mg/dL Creatinine (0.55-1.02) mg/dL Est Cr Clr Drug Dosing mL/min Estimated GFR (MDRD) (>60) mL/min BUN/Creatinine Ratio (14-18) Glucose (83-115) mg/dL POC Glucose 131 H 131 H (83-110) mg/dL Calcium (8.5-10.1) mg/dL Phosphorus 3.2 (2.6-4.7) mg/dL Magnesium (1.8-2.4) mg/dl 06/11/20 06/11/20 06/11/20 Range/Units 06:14 06:36 06:36 WBC 4.80 (3.98-10.04) K/mm3 RBC 2.89 L (3.98-5.22) M/mm3 Hgb 8.5 L (11.2-15.7) gm/dl Hct 26.8 L (34.1-44.9) % MCV 92.7 (79.4-94.8) fl MCH 29.4 (25.6-32.2) pg MCHC 31.7 L (32.2-35.5) g/dl RDW Std Deviation 55.3 H (36.4-46.3) fL Plt Count 125 L (182-369) K/mm3 MPV 9.2 L (9.4-12.3) fl Neut % (Auto) 54.2 (34.0-71.1) % Lymph % (Auto) 29.0 (19.3-51.7) % [place] % (Auto) 9.8 (4.7-12.5) % Eos % (Auto) 6.0 H (0.7-5.8) Baso % (Auto) 0.6 (0.1-1.2) % Neut # (Auto) 2.60 (1.56-6.13) K/mm3 Lymph # (Auto) 1.39 (1.18-3.74) K/mm3 [place] # (Auto) 0.47 H (0.24-0.36) K/mm3 Eos # (Auto) 0.29 (0.04-0.36) K/mm3 Baso # (Auto) 0.03 (0.01-0.08) K/mm3 Sodium 141 (136-145) mEq/L Potassium 4.1 (3.5-5.1) mEq/L Chloride 107 (98-107) mEq/L Carbon Dioxide 27 (21-32) mEq/L Anion Gap 11.1 (5-15) BUN 8 (7-18) mg/dL Creatinine 0.9 (0.55-1.02) mg/dL Est Cr Clr Drug Dosing 49.00 mL/min Estimated GFR (MDRD) > 60 (>60) mL/min BUN/Creatinine Ratio 8.9 L (14-18) Glucose 110 (83-115) mg/dL POC Glucose 110 (83-110) mg/dL Calcium 8.4 L (8.5-10.1) mg/dL Phosphorus (2.6-4.7) mg/dL Magnesium 1.6 L (1.8-2.4) mg/dl Med Orders - Current: Current Medications Acetaminophen (Tylenol) 650 mg PO Q4H PRN PRN Reason: Pain (Mild 1-3)/fever Last Admin: 06/09/20 22:26 Dose: 650 mg Documented by: Hydrocodone Bitart/Acetaminophen ([place] 325-5 Mg) 2 tab PO Q4H PRN PRN Reason: Pain (moderate 4-6) Last Admin: 06/10/20 20:06 Dose: 2 tab Documented by: Enoxaparin Sodium (Lovenox) 30 mg SUBCUT DAILY [facility] Last Admin: 06/11/20 08:30 Dose: 30 mg Documented by: Lactated Ringer's (Ringers, Lactated) 1,000 mls @ 50 mls/hr IV ASDIRECTED [facility] Last Admin: 06/10/20 16:22 Dose: 50 mls/hr Documented by: Magnesium Sulfate 4 gm/ Premix 50 mls @ 12.5 mls/hr IV ONETIME ONE Stop: 06/11/20 12:39 Last Admin: 06/11/20 08:56 Dose: 12.5 mls/hr Documented by: Loperamide HCl (Imodium) 6 mg PO Q12H PRN PRN Reason: Diarrhea Last Admin: 06/09/20 22:23 Dose: 6 mg Documented by: Melatonin (Melatonin) 18 mg PO BEDTIME PRN PRN Reason: Insomnia Last Admin: 06/10/20 20:07 Dose: 18 mg Documented by: Pantoprazole Sodium (Protonix) 40 mg PO DAILY@0700 [facility] Last Admin: 06/11/20 06:03 Dose: Not Given Documented by: Potassium Chloride (Klor-Con M20) 20 meq PO DAILY [facility] Stop: 06/12/20 09:01 Last Admin: 06/11/20 08:30 Dose: 20 meq Documented by: Promethazine HCl (Phenergan) 25 mg PO Q6H PRN PRN Reason: Nausea/Vomiting Sodium Chloride (Saline Flush) 10 ml FLUSH ONETIME PRN PRN Reason: IV FLUSH Last Admin: 06/09/20 14:50 Dose: 10 ml Documented by: Tacrolimus (Prograf) 1 mg PO BID [facility] Last Admin: 06/11/20 08:31 Dose: 1 mg Documented by: Discontinued Medications Sodium Chloride (Normal Saline) 1,000 mls @ 999 mls/hr IV ONETIME ONE Stop: 06/09/20 15:55 Last Admin: 06/09/20 15:54 Dose: 999 mls/hr Documented by: Magnesium Sulfate 4 gm/ Premix 50 mls @ 12.5 mls/hr IV ONETIME ONE Stop: 06/09/20 19:51 Last Admin: 06/09/20 16:28 Dose: 12.5 mls/hr Documented by: Magnesium Sulfate 4 gm/ Premix 50 mls @ 12.5 mls/hr IV ONETIME ONE Stop: 06/10/20 13:06 Last Admin: 06/10/20 10:14 Dose: 12.5 mls/hr Documented by: Magnesium Sulfate 4 gm/ Premix 50 mls @ 12.5 mls/hr IV ONETIME ONE Stop: 06/10/20 18:32 Last Admin: 06/10/20 17:24 Dose: Not Given Documented by: Iopamidol (Isovue-300 (61%)) 100 ml IVPUSH ONETIME ONE Stop: 06/09/20 15:26 Last Admin: 06/09/20 15:43 Dose: 100 ml Documented by: Non-Formulary Medication (Melatonin [Melatonin]) 20 mg PO BEDTIME VIRGILIO Potassium Chloride (Klor-Con M20) 40 meq PO ONETIME ONE Stop: 06/09/20 15:53 Last Admin: 06/09/20 16:26 Dose: 40 meq Documented by: - Exam General: Alert, Oriented Neck: Supple Lungs: Clear to Auscultation, Normal Respiratory Effort Cardiovascular: Regular Rate, Regular Rhythm GI/Abdominal Exam: Normal Bowel Sounds, Soft, Non-Tender, No Distention (Female) Exam: Deferred Back Exam: Normal Inspection, Full Range of Motion Extremities: Normal Inspection, Normal Range of Motion, Non-Tender, No Pedal Edema, Normal Capillary Refill Skin: Warm, Dry, Intact Wound/Incisions: Healing Well Neurological: No New Focal Deficit Psy/Mental Status: Alert, Normal Affect, Normal Mood Sepsis Event Note - Evaluation Sepsis Screening Result: No Definite Risk - Focused Exam Vital Signs: Vital Signs Temp Pulse Resp BP Pulse Ox 06/11/20 07:25 97.9 F 75 16 129/70 98 06/11/20 05:49 97.9 F 73 18 130/67 93 L 06/11/20 01:19 97.3 F 80 16 133/44 L 91 L - Problem List & Annotations (1) Dehydration SNOMED Code(s): 35721467 Code(s): E86.0 - DEHYDRATION Status: Acute Priority: Medium Current Visit: Yes Onset Date: ~06/09/20 Annotation/Comment:: 06/10: Blood pressure and heart rate have been trending up and have been stable since admission. Will continuing monitoring for signs of dehydration 06/11: IV fluids were discontined. Blood pressure and heart rate are stable within normal limits. I&Os have been good. (2) Hypomagnesemia SNOMED Code(s): 418947143 Code(s): E83.42 - HYPOMAGNESEMIA Status: Acute Priority: High Current Visit: Yes Onset Date: ~06/09/20 Annotation/Comment:: 06/10: Magnesium has come up from 0.8 to 1.4. Will give another 4 grams of mag sulfate to increase and will reassess in the AM 06/11: Magnesium has come up to 1.6. She is currently getting another 4 grams of mag sulfate and will reassess status once complete. (3) Loose bowel movements SNOMED Code(s): 544893326 Code(s): R19.5 - OTHER FECAL ABNORMALITIES Status: Acute Priority: Low Current Visit: Yes Onset Date: ~06/09/20 Annotation/Comment:: 06/10: Patient states that she has yet to have a bowel movement. This report was made this AM. Will reassess tomorrow. 06/11: Patient reports 3 bowel movements since admission. She denies any loose stools, abdominal pain, or constipation (4) Weakness SNOMED Code(s): 01917246 Code(s): R53.1 - WEAKNESS Status: Acute Priority: Medium Current Visit: Yes Onset Date: ~06/09/20 Annotation/Comment:: Patient states she is still weak, but is feeling stronger than yesterday. (5) Abdominal pain SNOMED Code(s): 69004227 Code(s): R10.9 - UNSPECIFIED ABDOMINAL PAIN Status: Acute Current Visit: No Qualifiers: Abdominal location: upper abdomen, unspecified Qualified Code(s): R10.10 - Upper abdominal pain, unspecified Annotation/Comment:: General surgery consulted and assessed patient. They will follow along with her care. - Problem List Review Problem List Initiated/Reviewed/Updated: Yes - Assessment Assessment:: 06/10: Hypomagnesemia: -Magnesium increased from 0.8 to 1.4 from yesterday -Will give 4 grams IV 50 mLs at 12.5 mls/hr -will reassess in the morning to determine levels Dehydration: -Patient's blood pressures have increased and have been stable -Patient states she has more strength than yesterday -Will continue monitoring for dehydration symptoms Abdominal pain: -General surgery consulted and will follow her throughout hospital stay -Continue on pain medications as tolerated. 06/11: Hypomagnesemia: -Magnesium has increased to 1.6 today. -She is currently getting 4 grams IV and will reassess levels -If increased to normal level, will discuss discharge today on oral magnesium. Dehydration: Resolved Abdominal pain: Resolved - Plan Plan:: 06/10/20 patient having some pain despite oral narcotics but not nauseated this am / ate breakfast. / hydration appears back to normal and will stop i.v. / gen surgery monitoring progress / abd picture /ct scan and no signs infection postop . mild atelectasis suspected /will try to get up and out of bed. boh 06/10: -Give Magnesium Sulfate 4 grams IV and will reassess levels in the AM -Talked to daughter in law today and went over CT results with her. Notified her that general surgery was consulted and will follow along with her care. 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 Will reassess upon completion and determine whether she can be discharged on oral magnesium -Patient states she has little to no abdominal pain and feels back to normal -She has been afebrile, her vitals have been stable with no signs of infection -discussed possible discharge home today depending upon weakness following completion of magnesium infusion -Discussed that if she is still weak after infusion, will likely recheck magnesium level in AM and will be discharged then.
--- NOTE | 2020-06-11 11:01 | PCM.PN ---
- General Info Date of Service: 06/11/20 Admission Dx/Problem (Free Text): Admission Diagnosis/Problem Admission Diagnosis/Problem Hypomagnesemia/weakness/post op partial colectomy Subjective Update: Patient is feeling better today. she ambulated yesterday, tolerated diet, passing gas and had bowel movements. She was sitting on a chair today. Functional Status: Reports: Pain Controlled, Tolerating Diet, Ambulating, Urinating - Review of Systems General: Reports: No Symptoms HEENT: Reports: No Symptoms Pulmonary: Reports: No Symptoms Cardiovascular: Reports: No Symptoms Gastrointestinal: Reports: Abdominal Pain (post operative) Genitourinary: Reports: No Symptoms Musculoskeletal: Reports: No Symptoms Skin: Reports: No Symptoms Neurological: Reports: No Symptoms Psychiatric: Reports: No Symptoms - Patient Data Vitals - Most Recent: Last Vital Signs Temp 97.9 F 06/11/20 07:25 Pulse 75 06/11/20 07:25 Resp 16 06/11/20 07:25 BP 129/70 06/11/20 07:25 Pulse Ox 98 06/11/20 07:25 Orthostatic Blood Pressure [ 117/47 Standing] Orthostatic Blood Pressure [ 105/45 Sitting] Orthostatic Blood Pressure [ 121/43 Supine] Weight - Most Recent: 78.744 kg I&O - Last 24 Hours: Intake & Output 06/10/20 06/11/20 06/11/20 22:59 06:59 14:59 Intake Total 1801 1014 Output Total 700 400 Balance 1101 614 Lab Results Last 24 Hours: Laboratory Results - last 24 hr 06/10/20 06/10/20 06/10/20 Range/Units 05:30 10:41 16:50 WBC (3.98-10.04) K/mm3 RBC (3.98-5.22) M/mm3 Hgb (11.2-15.7) gm/dl Hct (34.1-44.9) % MCV (79.4-94.8) fl MCH (25.6-32.2) pg MCHC (32.2-35.5) g/dl RDW Std Deviation (36.4-46.3) fL Plt Count (182-369) K/mm3 MPV (9.4-12.3) fl Neut % (Auto) (34.0-71.1) % Lymph % (Auto) (19.3-51.7) % [place] % (Auto) (4.7-12.5) % Eos % (Auto) (0.7-5.8) Baso % (Auto) (0.1-1.2) % Neut # (Auto) (1.56-6.13) K/mm3 Lymph # (Auto) (1.18-3.74) K/mm3 [place] # (Auto) (0.24-0.36) K/mm3 Eos # (Auto) (0.04-0.36) K/mm3 Baso # (Auto) (0.01-0.08) K/mm3 Sodium (136-145) mEq/L Potassium (3.5-5.1) mEq/L Chloride (98-107) mEq/L Carbon Dioxide (21-32) mEq/L Anion Gap (5-15) BUN (7-18) mg/dL Creatinine (0.55-1.02) mg/dL Est Cr Clr Drug Dosing mL/min Estimated GFR (MDRD) (>60) mL/min BUN/Creatinine Ratio (14-18) Glucose (83-115) mg/dL POC Glucose 131 H 131 H (83-110) mg/dL Calcium (8.5-10.1) mg/dL Phosphorus 3.2 (2.6-4.7) mg/dL Magnesium (1.8-2.4) mg/dl 06/11/20 06/11/20 06/11/20 Range/Units 06:14 06:36 06:36 WBC 4.80 (3.98-10.04) K/mm3 RBC 2.89 L (3.98-5.22) M/mm3 Hgb 8.5 L (11.2-15.7) gm/dl Hct 26.8 L (34.1-44.9) % MCV 92.7 (79.4-94.8) fl MCH 29.4 (25.6-32.2) pg MCHC 31.7 L (32.2-35.5) g/dl RDW Std Deviation 55.3 H (36.4-46.3) fL Plt Count 125 L (182-369) K/mm3 MPV 9.2 L (9.4-12.3) fl Neut % (Auto) 54.2 (34.0-71.1) % Lymph % (Auto) 29.0 (19.3-51.7) % [place] % (Auto) 9.8 (4.7-12.5) % Eos % (Auto) 6.0 H (0.7-5.8) Baso % (Auto) 0.6 (0.1-1.2) % Neut # (Auto) 2.60 (1.56-6.13) K/mm3 Lymph # (Auto) 1.39 (1.18-3.74) K/mm3 [place] # (Auto) 0.47 H (0.24-0.36) K/mm3 Eos # (Auto) 0.29 (0.04-0.36) K/mm3 Baso # (Auto) 0.03 (0.01-0.08) K/mm3 Sodium 141 (136-145) mEq/L Potassium 4.1 (3.5-5.1) mEq/L Chloride 107 (98-107) mEq/L Carbon Dioxide 27 (21-32) mEq/L Anion Gap 11.1 (5-15) BUN 8 (7-18) mg/dL Creatinine 0.9 (0.55-1.02) mg/dL Est Cr Clr Drug Dosing 49.00 mL/min Estimated GFR (MDRD) > 60 (>60) mL/min BUN/Creatinine Ratio 8.9 L (14-18) Glucose 110 (83-115) mg/dL POC Glucose 110 (83-110) mg/dL Calcium 8.4 L (8.5-10.1) mg/dL Phosphorus (2.6-4.7) mg/dL Magnesium 1.6 L (1.8-2.4) mg/dl Med Orders - Current: Current Medications Acetaminophen (Tylenol) 650 mg PO Q4H PRN PRN Reason: Pain (Mild 1-3)/fever Last Admin: 06/09/20 22:26 Dose: 650 mg Documented by: Hydrocodone Bitart/Acetaminophen ([place] 325-5 Mg) 2 tab PO Q4H PRN PRN Reason: Pain (moderate 4-6) Last Admin: 06/10/20 20:06 Dose: 2 tab Documented by: Enoxaparin Sodium (Lovenox) 30 mg SUBCUT DAILY [facility] Last Admin: 06/11/20 08:30 Dose: 30 mg Documented by: Lactated Ringer's (Ringers, Lactated) 1,000 mls @ 50 mls/hr IV ASDIRECTED [facility] Last Admin: 06/10/20 16:22 Dose: 50 mls/hr Documented by: Magnesium Sulfate 4 gm/ Premix 50 mls @ 12.5 mls/hr IV ONETIME ONE Stop: 06/11/20 12:39 Last Admin: 06/11/20 08:56 Dose: 12.5 mls/hr Documented by: Loperamide HCl (Imodium) 6 mg PO Q12H PRN PRN Reason: Diarrhea Last Admin: 06/09/20 22:23 Dose: 6 mg Documented by: Melatonin (Melatonin) 18 mg PO BEDTIME PRN PRN Reason: Insomnia Last Admin: 06/10/20 20:07 Dose: 18 mg Documented by: Pantoprazole Sodium (Protonix) 40 mg PO DAILY@0700 [facility] Last Admin: 06/11/20 06:03 Dose: Not Given Documented by: Potassium Chloride (Klor-Con M20) 20 meq PO DAILY [facility] Stop: 06/12/20 09:01 Last Admin: 06/11/20 08:30 Dose: 20 meq Documented by: Promethazine HCl (Phenergan) 25 mg PO Q6H PRN PRN Reason: Nausea/Vomiting Sodium Chloride (Saline Flush) 10 ml FLUSH ONETIME PRN PRN Reason: IV FLUSH Last Admin: 06/09/20 14:50 Dose: 10 ml Documented by: Tacrolimus (Prograf) 1 mg PO BID [facility] Last Admin: 06/11/20 08:31 Dose: 1 mg Documented by: Discontinued Medications Sodium Chloride (Normal Saline) 1,000 mls @ 999 mls/hr IV ONETIME ONE Stop: 06/09/20 15:55 Last Admin: 06/09/20 15:54 Dose: 999 mls/hr Documented by: Magnesium Sulfate 4 gm/ Premix 50 mls @ 12.5 mls/hr IV ONETIME ONE Stop: 06/09/20 19:51 Last Admin: 06/09/20 16:28 Dose: 12.5 mls/hr Documented by: Magnesium Sulfate 4 gm/ Premix 50 mls @ 12.5 mls/hr IV ONETIME ONE Stop: 06/10/20 13:06 Last Admin: 06/10/20 10:14 Dose: 12.5 mls/hr Documented by: Magnesium Sulfate 4 gm/ Premix 50 mls @ 12.5 mls/hr IV ONETIME ONE Stop: 06/10/20 18:32 Last Admin: 06/10/20 17:24 Dose: Not Given Documented by: Iopamidol (Isovue-300 (61%)) 100 ml IVPUSH ONETIME ONE Stop: 06/09/20 15:26 Last Admin: 06/09/20 15:43 Dose: 100 ml Documented by: Non-Formulary Medication (Melatonin [Melatonin]) 20 mg PO BEDTIME VIRGILIO Potassium Chloride (Klor-Con M20) 40 meq PO ONETIME ONE Stop: 06/09/20 15:53 Last Admin: 06/09/20 16:26 Dose: 40 meq Documented by: - Exam General: Alert, Oriented, Cooperative Lungs: Clear to Auscultation, Normal Respiratory Effort Cardiovascular: Regular Rate, Regular Rhythm GI/Abdominal Exam: Soft, Non-Tender, No Distention, No Abnormal Bruit, No Mass Sepsis Event Note - Evaluation Sepsis Screening Result: No Definite Risk - Focused Exam Vital Signs: Vital Signs Temp Pulse Resp BP Pulse Ox 06/11/20 07:25 97.9 F 75 16 129/70 98 06/11/20 05:49 97.9 F 73 18 130/67 93 L 06/11/20 01:19 97.3 F 80 16 133/44 L 91 L - Problem List Review Problem List Initiated/Reviewed/Updated: No - Assessment Assessment:: Patient is s/p right hemicolectomy 06/01. Admitted for weakness, loss of appetite and dehydration. She is doing better now. - Plan Plan:: - She is doing better today - Agree with magnesium repletion - I encouraged her to continue activities, drink plenty of fluids and eat whenever she can. this will avoid dehydration - Ok to discharge to home as patient is doing much better.
--- NOTE | 2020-06-11 12:12 | PCM.DCSUM1 ---
Discharge Summary - Hospital Course Free Text/Narrative:: Patient Name: BASSEM ARCE Date of : 1940 Patient Status: Inpatient Attending Provider: Wyatt Mclaughlin Date: 06/09/20 18:34 Initialization Date: 06/09/20 18:34 H&P History of Present Illness - General Date of Service: 06/09/20 Admit Problem/Dx: Admission Diagnosis/Problem Admission Diagnosis/Problem Hypomagnesemia/weakness/post op partial colectomy Source of Information: Patient, EMS, Provider History Limitations: Reports: No Limitations - History of Present Illness Initial Comments - Free Text/Narative: 79 year old female admitted with weakness 4 days s/p partial colectomy for colon cancer. she relates sh is having brown cottege cheese like bms today and feels very weak with abd pain in lower abd. denies fever chills rigors . no vomiting but mild nausea but eating fairly well. feels dizzy when standing. voiding well and wears depends for partial incontinence. apperent colon resection for colon cancer . previous hysterectomy . no hx of sbo by hx. not eating today and felt weak. taking pain meds but still very painful. pmh diff to get from patient all : unknown soc hx lives at home with son? nobody available for hx . verification ros negative for covid /uti chest pain /tia and or bleeding form rectum. p.e. see note. lab mg .7 hgn 9.4. lfts pending. ua pending ct scan shows edema around jujunum and colon with surgical changes and edema of bowel wall with thickening . chest xray pending. ekg pending. assess: 1) abd pain with edema and post op changes without findings of abscess seen/ will have gen. surgery see in am but appears stable. 2) /// antibiotics not clearly indicated. mild crp elavation a nd recheck labs in am . 3) pain control diff. to say but not bad in bed with current po narcotics. 4) dehydration moderate and cont i.v replacement . 5) hypomagnesemia fairly severe and will need replacement and started on i.v and p.o mag. 6)mild dementia. mild thrombocytopenia . 7) colon cancer ? stage and or prognosis not addressed . 8) weakness pt and ss and ot consulted/ needs some dietary supplements as well boh Onset of Symptoms: Reports: Gradual Symptom Onset Date: 06/07/20 Location: Reports: Abdomen, Generalized Quality: Reports: Ache, Sharp Severity: Moderate Improves with: Reports: Medication Worsens with: Reports: Movement Associated Symptoms: Reports: Confusion, Loss of Appetite, Malaise Lower Abdomen Pain Score (Numeric/FACES): 3 - Related Data Allergies/Adverse Reactions: Allergies Allergy/AdvReac Type Severity Reaction Status Date / Time No Known Allergies Allergy Verified 06/09/20 14:42 Home Medications: Home Meds Doxepin [SINEquan] 10 mg PO BEDTIME 02/28/20 [History] Ergocalciferol (Vitamin D2) [Vitamin D2] 1.25 mg PO ASDIRECTED 02/28/20 [History] Hydrocodone/Acetaminophen [Hydrocodone-Acetamin 5-325 mg] 1 - 2 each PO Q6HR PRN #20 tablet 02/28/20 [Rx] Melatonin 20 mg PO BEDTIME 02/28/20 [History] Metoprolol Tartrate 50 mg PO DAILY 02/28/20 [History] Multivitamin [Multivitamins] 1 tab PO DAILY 02/28/20 [History] Tacrolimus [Prograf] 1 mg PO BID 02/28/20 [History] amLODIPine [Norvasc] 5 mg PO DAILY 02/28/20 [History] metFORMIN [Glucophage] 500 mg PO BID 02/28/20 [History] traMADol [Ultram] 50 - 100 mg PO TID PRN 02/28/20 [History] Omeprazole 20 mg PO DAILY 06/09/20 [History] Vit A/C/Biotin/Zinc/Selenometh [Biotin-Vitamin C Softgel] 1 cap PO DAILY 06/09/20 [History] Past Medical History Cardiovascular History: Reports: Hypertension Gastrointestinal History: Reports: Other (See Below) Other Gastrointestinal History: liver transplant; abdominal hernia repair with mesh 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: Endocrine/Metabolic History: Reports: Diabetes, Type II Oncologic (Cancer) History: Reports: Colon - Infectious Disease History Infectious Disease History: Reports: Chicken Pox, Measles, Mumps - Past Surgical History HEENT Surgical History: Reports: Tonsillectomy GI Surgical History: Reports: Appendectomy, Cholecystectomy, Colon Female Surgical History: Reports: Section, Hysterectomy Social & Family History - Tobacco Use Tobacco Use Status *Q: Never Tobacco User Second Hand Smoke Exposure: No - Caffeine Use Caffeine Use: Reports: None Other Caffeine Use: diet - Recreational Drug Use Recreational Drug Use: No H&P Review of Systems - Review of Systems: Review Of Systems: See Below General: Reports: Decreased Appetite HEENT: Reports: No Symptoms Pulmonary: Reports: No Symptoms Cardiovascular: Reports: No Symptoms Gastrointestinal: Reports: Abdominal Pain, Anorexia, Black Stool, Diarrhea, Nausea Genitourinary: Reports: No Symptoms Musculoskeletal: Reports: No Symptoms Skin: Reports: No Symptoms Psychiatric: Reports: No Symptoms, Confusion Neurological: Reports: No Symptoms Hematologic/Lymphatic: Reports: No Symptoms, Anemia Exam - Exam Exam: See Below - Vital Signs Vital Signs: Last Vital Signs Temp 36.1 C 06/09/20 18:25 Pulse 67 06/09/20 18:25 Resp 16 06/09/20 18:25 BP 115/51 L 06/09/20 18:25 Pulse Ox 93 L 06/09/20 18:25 Orthostatic Blood Pressure [ 117/47 Standing] Orthostatic Blood Pressure [ 105/45 Sitting] Orthostatic Blood Pressure [ 121/43 Supine] Weight: 72.575 kg - Exam General: Alert, Oriented, 4 HEENT: PERRLA, Hearing Intact, Mucosa Moist & Shickley, Nares Patent, Normal Nasal Septum, Posterior Pharynx Clear, Conjunctiva Clear, EOMI, EACs Clear, TMs Clear Neck: Supple, Trachea Midline, 2 Lungs: Clear to Auscultation, Normal Respiratory Effort Cardiovascular: Regular Rate, Regular Rhythm GI/Abdominal Exam: Normal Bowel Sounds, Soft (scar well healed midline. scar /stab wound eschar. mild lower abd tendernes without rebound/// no chevron sca ), Non-Tender, No Organomegaly, No Distention, No Abnormal Bruit, No Mass (Female) Exam: Normal External Exam, Normal Speculum Exam, Normal Bimanual Exam Rectal (Female) Exam: Normal Exam, Normal Rectal Tone Back Exam: Normal Inspection, Full Range of Motion, NT Extremities: Normal Inspection, Normal Range of Motion, Non-Tender, No Pedal Edema, Normal Capillary Refill Peripheral Pulses: 2+: Carotid (L), Carotid (R), Brachial (L), Brachial (R) Skin: Warm, Dry, Intact, Wound, Incision Neurological: Cranial Nerves Intact, Reflexes Equal Bilateral Neuro Extensive - Mental Status: Alert, Oriented x3, Normal Mood/Affect, Normal Cognition Neuro Extensive - Motor, Sensory, Reflexes: CN II-XII Intact, Normal Gait, Normal Reflexes Psychiatric: Alert, Normal Affect, Normal Mood - Patient Data Lab Results Last 24 hrs: Laboratory Results - last 24 hr 06/09/20 06/09/20 06/09/20 Range/Units 14:50 14:50 14:50 WBC 8.42 (3.98-10.04) K/mm3 RBC 3.28 L (3.98-5.22) M/mm3 Hgb 9.6 L D (11.2-15.7) gm/dl Hct 30.3 L (34.1-44.9) % MCV 92.4 D (79.4-94.8) fl MCH 29.3 (25.6-32.2) pg MCHC 31.7 L (32.2-35.5) g/dl RDW Std Deviation 53.4 H (36.4-46.3) fL Plt Count 197 (182-369) K/mm3 MPV 9.2 L (9.4-12.3) fl Neut % (Auto) 65.5 (34.0-71.1) % Lymph % (Auto) 20.1 (19.3-51.7) % Grundy % (Auto) 9.7 (4.7-12.5) % Eos % (Auto) 4.0 (0.7-5.8) Baso % (Auto) 0.2 (0.1-1.2) % Neut # (Auto) 5.51 (1.56-6.13) K/mm3 Lymph # (Auto) 1.69 (1.18-3.74) K/mm3 [place] # (Auto) 0.82 H (0.24-0.36) K/mm3 Eos # (Auto) 0.34 (0.04-0.36) K/mm3 Baso # (Auto) 0.02 (0.01-0.08) K/mm3 Sodium 140 (136-145) mEq/L Potassium 3.5 (3.5-5.1) mEq/L Chloride 105 (98-107) mEq/L Carbon Dioxide 28 (21-32) mEq/L Anion Gap 10.5 (5-15) BUN 11 (7-18) mg/dL Creatinine 1.4 H (0.55-1.02) mg/dL Est Cr Clr Drug Dosing 31.50 mL/min Estimated GFR (MDRD) 36 (>60) mL/min BUN/Creatinine Ratio 7.9 L (14-18) Glucose 133 H (83-115) mg/dL Calcium 8.7 (8.5-10.1) mg/dL Magnesium 0.8 L (1.8-2.4) mg/dl Total Bilirubin 0.9 (0.2-1.0) mg/dL AST 16 (15-37) U/L ALT 13 L (14-59) U/L Alkaline Phosphatase 57 (46-116) U/L C-Reactive Protein 3.6 H* (<1.0) mg/dL Total Protein 5.9 L (6.4-8.2) g/dl Albumin 2.4 L (3.4-5.0) g/dl Globulin 3.5 gm/dL Albumin/Globulin Ratio 0.7 L (1-2) SARS-CoV-2 RNA (NAVEED) (NEGATIVE) 06/09/20 Range/Units 17:00 WBC (3.98-10.04) K/mm3 RBC (3.98-5.22) M/mm3 Hgb (11.2-15.7) gm/dl Hct (34.1-44.9) % MCV (79.4-94.8) fl MCH (25.6-32.2) pg MCHC (32.2-35.5) g/dl RDW Std Deviation (36.4-46.3) fL Plt Count (182-369) K/mm3 MPV (9.4-12.3) fl Neut % (Auto) (34.0-71.1) % Lymph % (Auto) (19.3-51.7) % [place] % (Auto) (4.7-12.5) % Eos % (Auto) (0.7-5.8) Baso % (Auto) (0.1-1.2) % Neut # (Auto) (1.56-6.13) K/mm3 Lymph # (Auto) (1.18-3.74) K/mm3 Grundy # (Auto) (0.24-0.36) K/mm3 Eos # (Auto) (0.04-0.36) K/mm3 Baso # (Auto) (0.01-0.08) K/mm3 Sodium (136-145) mEq/L Potassium (3.5-5.1) mEq/L Chloride (98-107) mEq/L Carbon Dioxide (21-32) mEq/L Anion Gap (5-15) BUN (7-18) mg/dL Creatinine (0.55-1.02) mg/dL Est Cr Clr Drug Dosing mL/min Estimated GFR (MDRD) (>60) mL/min BUN/Creatinine Ratio (14-18) Glucose (83-115) mg/dL Calcium (8.5-10.1) mg/dL Magnesium (1.8-2.4) mg/dl Total Bilirubin (0.2-1.0) mg/dL AST (15-37) U/L ALT (14-59) U/L Alkaline Phosphatase (46-116) U/L C-Reactive Protein (<1.0) mg/dL Total Protein (6.4-8.2) g/dl Albumin (3.4-5.0) g/dl Globulin gm/dL Albumin/Globulin Ratio (1-2) SARS-CoV-2 RNA (NAVEED) Negative (NEGATIVE) Result Diagrams: 06/09/20 14:50 06/09/20 14:50 Sepsis Event Note - Evaluation Sepsis Screening Result: No Definite Risk - Focused Exam Vital Signs: Vital Signs Temp Pulse Resp BP Pulse Ox 06/09/20 18:25 36.1 C 67 16 115/51 L 93 L 06/09/20 14:38 36.2 C 60 14 97/45 L 97 - Problem List (1) Hypomagnesemia SNOMED Code(s): 554336592 ICD Code: E83.42 - HYPOMAGNESEMIA Status: Acute Priority: High Current Visit: Yes Onset Date: ~06/09/20 (2) Dehydration SNOMED Code(s): 06381837 ICD Code: E86.0 - DEHYDRATION Status: Acute Priority: Medium Current Visit: Yes Onset Date: ~06/09/20 (3) Weakness SNOMED Code(s): 47560747 ICD Code: R53.1 - WEAKNESS Status: Acute Priority: Medium Current Visit: Yes Onset Date: ~06/09/20 (4) Loose bowel movements SNOMED Code(s): 693649467 ICD Code: R19.5 - OTHER FECAL ABNORMALITIES Status: Acute Priority: Low Current Visit: Yes Onset Date: ~06/09/20 Problem List Initiated/Reviewed/Updated: Yes Orders Last 24hrs: Active Orders 24 hr Category Date Time Status Admission Status [Patient Status] [ADT] Routine ADT 06/09/20 17:48 Active Antiembolic Devices [RC] PER UNIT ROUTINE Care 06/09/20 17:59 Active Blood Glucose Check, Bedside [RC] TIDMEALS Care 06/09/20 17:50 Active Intake and Output [RC] QSHIFT Care 06/09/20 17:55 Active Orthostatic Vital Signs [RC] ASDIRECTED Care 06/09/20 14:46 Active Oxygen Therapy [RC] PRN Care 06/09/20 17:53 Active Pulse Oximetry [RC] PRN Care 06/09/20 17:58 Active Up to Chair [RC] ASDIRECTED Care 06/09/20 17:50 Active VTE/DVT Education [RC] PER UNIT ROUTINE Care 06/09/20 17:53 Active Vital Signs [RC] Q4H Care 06/09/20 17:53 Active Consult to Case Management/Chief Operations Officer [CONS] Cons 06/09/20 17:50 Active Routine OT Evaluation and Treatment [CONS] Routine Cons 06/09/20 17:50 Active PT Evaluation and Treatment [CONS] Routine Cons 06/09/20 17:50 Active Regular Diet [DIET] Diet 06/09/20 Dinner Active BASIC METABOLIC PANEL,BMP [CHEM] AM Lab 06/10/20 05:11 Ordered CBC WITH AUTO DIFF [HEME] AM Lab 06/10/20 05:11 Ordered MAGNESIUM [CHEM] AM Lab 06/10/20 05:11 Ordered MAGNESIUM [CHEM] AM Lab 06/11/20 05:11 Ordered MAGNESIUM [CHEM] AM Lab 06/12/20 05:11 Ordered UA W/O MICROSCOPIC [URIN] Routine Lab 06/09/20 17:50 Ordered Acetaminophen [TylenoL] Med 06/09/20 17:50 Active 650 mg PO Q4H PRN Acetaminophen/HYDROcodone [[place] 325-5 MG] Med 06/09/20 17:50 Active 2 tab PO Q4H PRN Enoxaparin [Lovenox] Med 06/10/20 09:00 Active 30 mg SUBCUT DAILY Lactated Ringers [Ringers, Lactated] 1,000 ml Med 06/09/20 18:00 Active IV ASDIRECTED Magnesium Sulfate/Water [Magnesium Sulfate in Water Med 06/09/20 15:52 Active Premix] 4 gm Premix Bag 1 bag IV ONETIME Promethazine [Phenergan] Med 06/09/20 17:50 Active 25 mg PO Q6H PRN Sodium Chloride 0.9% [Saline Flush] Med 06/09/20 15:25 Active 10 ml FLUSH ONETIME PRN Antiembolic Hose [OM.PC] Per Unit Routine Oth 06/09/20 17:58 Ordered Resuscitation Status Routine Resus Stat 06/09/20 17:50 Ordered Medication Orders Acetaminophen (Tylenol) 650 mg PO Q4H PRN PRN Reason: Pain (Mild 1-3)/fever Hydrocodone Bitart/Acetaminophen ([place] 325-5 Mg) 2 tab PO Q4H PRN PRN Reason: Pain (moderate 4-6) Enoxaparin Sodium (Lovenox) 30 mg SUBCUT DAILY [facility] Magnesium Sulfate 4 gm/ Premix 50 mls @ 12.5 mls/hr IV ONETIME ONE Stop: 06/09/20 19:51 Last Admin: 06/09/20 16:28 Dose: 12.5 mls/hr Documented by: JENI Lactated Ringer's (Ringers, Lactated) 1,000 mls @ 50 mls/hr IV ASDIRECTED VIRGILIO Promethazine HCl (Phenergan) 25 mg PO Q6H PRN PRN Reason: Nausea/Vomiting Sodium Chloride (Saline Flush) 10 ml FLUSH ONETIME PRN PRN Reason: IV FLUSH Last Admin: 06/09/20 14:50 Dose: 10 ml Documented by: JENI Assessment/Plan Comment:: 79 year old female admitted with weakness 4 days s/p partial colectomy for colon cancer. she relates sh is having brown cottege cheese like bms today and feels very weak with abd pain in lower abd. denies fever chills rigors . no vomiting but mild nausea but eating fairly well. feels dizzy when standing. voiding well and wears depends for partial incontinence. apperent colon resection for colon cancer . previous hysterectomy . no hx of sbo by hx. not eating today and felt weak. taking pain meds but still very painful. pmh diff to get from patient all : unknown soc hx lives at home with son? nobody available for hx . verification ros negative for covid /uti chest pain /tia and or bleeding form rectum. p.e. see note. lab mg .7 hgn 9.4. lfts pending. ua pending ct scan shows edema around jujunum and colon with surgical changes and edema of bowel wall with thickening . chest xray pending. ekg pending. assess: 1) abd pain with edema and post op changes without findings of abscess seen/ will have gen. surgery see in am but appears stable. 2) /// antibiotics not clearly indicated. mild crp elavation a nd recheck labs in am . 3) pain control diff. to say but not bad in bed with current po narcotics. 4) dehydration moderate and cont i.v replacement . 5) hypomagnesemia fairly severe and will need replacement and started on i.v and p.o mag. 6)mild dementia. mild thrombocytopenia . 7) colon cancer ? stage and or prognosis not addressed . 8) weakness pt and ss and ot consulted/ needs some dietary supplements as well boh - Mortality Measure Prognosis:: Good HPI Initial Comments: Patient Name: BASSEM ARCE Date of : 1940 Patient Status: Inpatient Attending Provider: Wyatt Mclaughlin Date: 06/09/20 18:34 Initialization Date: 06/09/20 18:34 H&P History of Present Illness - General Date of Service: 06/09/20 Admit Problem/Dx: Admission Diagnosis/Problem Admission Diagnosis/Problem Hypomagnesemia/weakness/post op partial colectomy Source of Information: Patient, EMS, Provider History Limitations: Reports: No Limitations - History of Present Illness Initial Comments - Free Text/Narative: 79 year old female admitted with weakness 4 days s/p partial colectomy for colon cancer. she relates sh is having brown cottege cheese like bms today and feels very weak with abd pain in lower abd. denies fever chills rigors . no vomiting but mild nausea but eating fairly well. feels dizzy when standing. voiding well and wears depends for partial incontinence. apperent colon resection for colon cancer . previous hysterectomy . no hx of sbo by hx. not eating today and felt weak. taking pain meds but still very painful. pmh diff to get from patient all : unknown soc hx lives at home with son? nobody available for hx . verification ros negative for covid /uti chest pain /tia and or bleeding form rectu m. p.e. see note. lab mg .7 hgn 9.4. lfts pending. ua pending ct scan shows edema around jujunum and colon with surgical changes and edema of bowel wall with thickening . chest xray pending. ekg pending. assess: 1) abd pain with edema and post op changes without findings of abscess seen/ will have gen. surgery see in am but appears stable. 2) /// antibiotics not clearly indicated. mild crp elavation a nd recheck labs in am . 3) pain control diff. to say but not bad in bed with current po narcotics. 4) dehydration moderate and cont i.v replacement . 5) hypomagnesemia fairly severe and will need replacement and started on i.v and p.o mag. 6)mild dementia. mild thrombocytopenia . 7) colon cancer ? stage and or prognosis not addressed . 8) weakness pt and ss and ot consulted/ needs some dietary supplements as well boh Onset of Symptoms: Reports: Gradual Symptom Onset Date: 06/07/20 Location: Reports: Abdomen, Generalized Quality: Reports: Ache, Sharp Severity: Moderate Improves with: Reports: Medication Worsens with: Reports: Movement Associated Symptoms: Reports: Confusion, Loss of Appetite, Malaise Lower Abdomen Pain Score (Numeric/FACES): 3 - Related Data Allergies/Adverse Reactions: Allergies Allergy/AdvReac Type Severity Reaction Status Date / Time No Known Allergies Allergy Verified 06/09/20 14:42 Home Medications: Home Meds Doxepin [SINEquan] 10 mg PO BEDTIME 02/28/20 [History] Ergocalciferol (Vitamin D2) [Vitamin D2] 1.25 mg PO ASDIRECTED 02/28/20 [History] Hydrocodone/Acetaminophen [Hydrocodone-Acetamin 5-325 mg] 1 - 2 each PO Q6HR PRN #20 tablet 02/28/20 [Rx] Melatonin 20 mg PO BEDTIME 02/28/20 [History] Metoprolol Tartrate 50 mg PO DAILY 02/28/20 [History] Multivitamin [Multivitamins] 1 tab PO DAILY 02/28/20 [History] Tacrolimus [Prograf] 1 mg PO BID 02/28/20 [History] amLODIPine [Norvasc] 5 mg PO DAILY 02/28/20 [History] metFORMIN [Glucophage] 500 mg PO BID 02/28/20 [History] traMADol [Ultram] 50 - 100 mg PO TID PRN 02/28/20 [History] Omeprazole 20 mg PO DAILY 06/09/20 [History] Vit A/C/Biotin/Zinc/Selenometh [Biotin-Vitamin C Softgel] 1 cap PO DAILY 06/09/20 [History] Past Medical History Cardiovascular History: Reports: Hypertension Gastrointestinal History: Reports: Other (See Below) Other Gastrointestinal History: liver transplant; abdominal hernia repair with mesh 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: Endocrine/Metabolic History: Reports: Diabetes, Type II Oncologic (Cancer) History: Reports: Colon - Infectious Disease History Infectious Disease History: Reports: Chicken Pox, Measles, Mumps - Past Surgical History HEENT Surgical History: Reports: Tonsillectomy GI Surgical History: Reports: Appendectomy, Cholecystectomy, Colon Female Surgical History: Reports: Section, Hysterectomy Social & Family History - Tobacco Use Tobacco Use Status *Q: Never Tobacco User Second Hand Smoke Exposure: No - Caffeine Use Caffeine Use: Reports: None Other Caffeine Use: diet - Recreational Drug Use Recreational Drug Use: No H&P Review of Systems - Review of Systems: Review Of Systems: See Below General: Reports: Decreased Appetite HEENT: Reports: No Symptoms Pulmonary: Reports: No Symptoms Cardiovascular: Reports: No Symptoms Gastrointestinal: Reports: Abdominal Pain, Anorexia, Black Stool, Diarrhea, Nausea Genitourinary: Reports: No Symptoms Musculoskeletal: Reports: No Symptoms Skin: Reports: No Symptoms Psychiatric: Reports: No Symptoms, Confusion Neurological: Reports: No Symptoms Hematologic/Lymphatic: Reports: No Symptoms, Anemia Exam - Exam Exam: See Below - Vital Signs Vital Signs: Last Vital Signs Temp 36.1 C 06/09/20 18:25 Pulse 67 06/09/20 18:25 Resp 16 06/09/20 18:25 BP 115/51 L 06/09/20 18:25 Pulse Ox 93 L 06/09/20 18:25 Orthostatic Blood Pressure [ 117/47 Standing] Orthostatic Blood Pressure [ 105/45 Sitting] Orthostatic Blood Pressure [ 121/43 Supine] Weight: 72.575 kg - Exam General: Alert, Oriented, 4 HEENT: PERRLA, Hearing Intact, Mucosa Moist & Shickley, Nares Patent, Normal Nasal Septum, Posterior Pharynx Clear, Conjunctiva Clear, EOMI, EACs Clear, TMs Clear Neck: Supple, Trachea Midline, 2 Lungs: Clear to Auscultation, Normal Respiratory Effort Cardiovascular: Regular Rate, Regular Rhythm GI/Abdominal Exam: Normal Bowel Sounds, Soft (scar well healed midline. scar /stab wound eschar. mild lower abd tendernes without rebound/// no chevron sca ), Non-Tender, No Organomegaly, No Distention, No Abnormal Bruit, No Mass (Female) Exam: Normal External Exam, Normal Speculum Exam, Normal Bimanual Exam Rectal (Female) Exam: Normal Exam, Normal Rectal Tone Back Exam: Normal Inspection, Full Range of Motion, NT Extremities: Normal Inspection, Normal Range of Motion, Non-Tender, No Pedal Ed jean pierre, Normal Capillary Refill Peripheral Pulses: 2+: Carotid (L), Carotid (R), Brachial (L), Brachial (R) Skin: Warm, Dry, Intact, Wound, Incision Neurological: Cranial Nerves Intact, Reflexes Equal Bilateral Neuro Extensive - Mental Status: Alert, Oriented x3, Normal Mood/Affect, Normal Cognition Neuro Extensive - Motor, Sensory, Reflexes: CN II-XII Intact, Normal Gait, Normal Reflexes Psychiatric: Alert, Normal Affect, Normal Mood - Patient Data Lab Results Last 24 hrs: Laboratory Results - last 24 hr 06/09/20 06/09/20 06/09/20 Range/Units 14:50 14:50 14:50 WBC 8.42 (3.98-10.04) K/mm3 RBC 3.28 L (3.98-5.22) M/mm3 Hgb 9.6 L D (11.2-15.7) gm/dl Hct 30.3 L (34.1-44.9) % MCV 92.4 D (79.4-94.8) fl MCH 29.3 (25.6-32.2) pg MCHC 31.7 L (32.2-35.5) g/dl RDW Std Deviation 53.4 H (36.4-46.3) fL Plt Count 197 (182-369) K/mm3 MPV 9.2 L (9.4-12.3) fl Neut % (Auto) 65.5 (34.0-71.1) % Lymph % (Auto) 20.1 (19.3-51.7) % [place] % (Auto) 9.7 (4.7-12.5) % Eos % (Auto) 4.0 (0.7-5.8) Baso % (Auto) 0.2 (0.1-1.2) % Neut # (Auto) 5.51 (1.56-6.13) K/mm3 Lymph # (Auto) 1.69 (1.18-3.74) K/mm3 [place] # (Auto) 0.82 H (0.24-0.36) K/mm3 Eos # (Auto) 0.34 (0.04-0.36) K/mm3 Baso # (Auto) 0.02 (0.01-0.08) K/mm3 Sodium 140 (136-145) mEq/L Potassium 3.5 (3.5-5.1) mEq/L Chloride 105 (98-107) mEq/L Carbon Dioxide 28 (21-32) mEq/L Anion Gap 10.5 (5-15) BUN 11 (7-18) mg/dL Creatinine 1.4 H (0.55-1.02) mg/dL Est Cr Clr Drug Dosing 31.50 mL/min Estimated GFR (MDRD) 36 (>60) mL/min BUN/Creatinine Ratio 7.9 L (14-18) Glucose 133 H (83-115) mg/dL Calcium 8.7 (8.5-10.1) mg/dL Magnesium 0.8 L (1.8-2.4) mg/dl Total Bilirubin 0.9 (0.2-1.0) mg/dL AST 16 (15-37) U/L ALT 13 L (14-59) U/L Alkaline Phosphatase 57 (46-116) U/L C-Reactive Protein 3.6 H* (<1.0) mg/dL Total Protein 5.9 L (6.4-8.2) g/dl Albumin 2.4 L (3.4-5.0) g/dl Globulin 3.5 gm/dL Albumin/Globulin Ratio 0.7 L (1-2) SARS-CoV-2 RNA (NAVEED) (NEGATIVE) 06/09/20 Range/Units 17:00 WBC (3.98-10.04) K/mm3 RBC (3.98-5.22) M/mm3 Hgb (11.2-15.7) gm/dl Hct (34.1-44.9) % MCV (79.4-94.8) fl MCH (25.6-32.2) pg MCHC (32.2-35.5) g/dl RDW Std Deviation (36.4-46.3) fL Plt Count (182-369) K/mm3 MPV (9.4-12.3) fl Neut % (Auto) (34.0-71.1) % Lymph % (Auto) (19.3-51.7) % [place]undy % (Auto) (4.7-12.5) % Eos % (Auto) (0.7-5.8) Baso % (Auto) (0.1-1.2) % Neut # (Auto) (1.56-6.13) K/mm3 Lymph # (Auto) (1.18-3.74) K/mm3 [place]undy # (Auto) (0.24-0.36) K/mm3 Eos # (Auto) (0.04-0.36) K/mm3 Baso # (Auto) (0.01-0.08) K/mm3 Sodium (136-145) mEq/L Potassium (3.5-5.1) mEq/L Chloride (98-107) mEq/L Carbon Dioxide (21-32) mEq/L Anion Gap (5-15) BUN (7-18) mg/dL Creatinine (0.55-1.02) mg/dL Est Cr Clr Drug Dosing mL/min Estimated GFR (MDRD) (>60) mL/min BUN/Creatinine Ratio (14-18) Glucose (83-115) mg/dL Calcium (8.5-10.1) mg/dL Magnesium (1.8-2.4) mg/dl Total Bilirubin (0.2-1.0) mg/dL AST (15-37) U/L ALT (14-59) U/L Alkaline Phosphatase (46-116) U/L C-Reactive Protein (<1.0) mg/dL Total Protein (6.4-8.2) g/dl Albumin (3.4-5.0) g/dl Globulin gm/dL Albumin/Globulin Ratio (1-2) SARS-CoV-2 RNA (NAVEED) Negative (NEGATIVE) Result Diagrams: 06/09/20 14:50 06/09/20 14:50 Sepsis Event Note - Evaluation Sepsis Screening Result: No Definite Risk - Focused Exam Vital Signs: Vital Signs Temp Pulse Resp BP Pulse Ox 06/09/20 18:25 36.1 C 67 16 115/51 L 93 L 06/09/20 14:38 36.2 C 60 14 97/45 L 97 - Problem List (1) Hypomagnesemia SNOMED Code(s): 577461954 ICD Code: E83.42 - HYPOMAGNESEMIA Status: Acute Priority: High Current Visit: Yes Onset Date: ~06/09/20 (2) Dehydration SNOMED Code(s): 34014078 ICD Code: E86.0 - DEHYDRATION Status: Acute Priority: Medium Current Visit: Yes Onset Date: ~06/09/20 (3) Weakness SNOMED Code(s): 69014954 ICD Code: R53.1 - WEAKNESS Status: Acute Priority: Medium Current Visit: Yes Onset Date: ~06/09/20 (4) Loose bowel movements SNOMED Code(s): 354905205 ICD Code: R19.5 - OTHER FECAL ABNORMALITIES Status: Acute Priority: Low Current Visit: Yes Onset Date: ~06/09/20 Problem List Initiated/Reviewed/Updated: Yes Orders Last 24hrs: Active Orders 24 hr Category Date Time Status Admission Status [Patient Status] [ADT] Routine ADT 06/09/20 17:48 Active Antiembolic Devices [RC] PER UNIT ROUTINE Care 06/09/20 17:59 Active Blood Glucose Check, Bedside [RC] TIDMEALS Care 06/09/20 17:50 Active Intake and Output [RC] QSHIFT Care 06/09/20 17:55 Active Orthostatic Vital Signs [RC] ASDIRECTED Care 06/09/20 14:46 Active Oxygen Therapy [RC] PRN Care 06/09/20 17:53 Active Pulse Oximetry [RC] PRN Care 06/09/20 17:58 Active Up to Chair [RC] ASDIRECTED Care 06/09/20 17:50 Active VTE/DVT Education [RC] PER UNIT ROUTINE Care 06/09/20 17:53 Active Vital Signs [RC] Q4H Care 06/09/20 17:53 Active Consult to Case Management/Chief Operations Officer [CONS] Cons 06/09/20 17:50 Active Routine OT Evaluation and Treatment [CONS] Routine Cons 06/09/20 17:50 Active PT Evaluation and Treatment [CONS] Routine Cons 06/09/20 17:50 Active Regular Diet [DIET] Diet 06/09/20 Dinner Active BASIC METABOLIC PANEL,BMP [CHEM] AM Lab 06/10/20 05:11 Ordered CBC WITH AUTO DIFF [HEME] AM Lab 06/10/20 05:11 Ordered MAGNESIUM [CHEM] AM Lab 06/10/20 05:11 Ordered MAGNESIUM [CHEM] AM Lab 06/11/20 05:11 Ordered MAGNESIUM [CHEM] AM Lab 06/12/20 05:11 Ordered UA W/O MICROSCOPIC [URIN] Routine Lab 06/09/20 17:50 Ordered Acetaminophen [TylenoL] Med 06/09/20 17:50 Active 650 mg PO Q4H PRN Acetaminophen/HYDROcodone [[place] 325-5 MG] Med 06/09/20 17:50 Active 2 tab PO Q4H PRN Enoxaparin [Lovenox] Med 06/10/20 09:00 Active 30 mg SUBCUT DAILY Lactated Ringers [Ringers, Lactated] 1,000 ml Med 06/09/20 18:00 Active IV ASDIRECTED Magnesium Sulfate/Water [Magnesium Sulfate in Water Med 06/09/20 15:52 Active Premix] 4 gm Premix Bag 1 bag IV ONETIME Promethazine [Phenergan] Med 06/09/20 17:50 Active 25 mg PO Q6H PRN Sodium Chloride 0.9% [Saline Flush] Med 06/09/20 15:25 Active 10 ml FLUSH ONETIME PRN Antiembolic Hose [OM.PC] Per Unit Routine Oth 06/09/20 17:58 Ordered Resuscitation Status Routine Resus Stat 06/09/20 17:50 Ordered Medication Orders Acetaminophen (Tylenol) 650 mg PO Q4H PRN PRN Reason: Pain (Mild 1-3)/fever Hydrocodone Bitart/Acetaminophen ([place] 325-5 Mg) 2 tab PO Q4H PRN PRN Reason: Pain (moderate 4-6) Enoxaparin Sodium (Lovenox) 30 mg SUBCUT DAILY [facility] Magnesium Sulfate 4 gm/ Premix 50 mls @ 12.5 mls/hr IV ONETIME ONE Stop: 06/09/20 19:51 Last Admin: 06/09/20 16:28 Dose: 12.5 mls/hr Documented by: JENI Lactated Ringer's (Ringers, Lactated) 1,000 mls @ 50 mls/hr IV ASDIRECTED [facility] Promethazine HCl (Phenergan) 25 mg PO Q6H PRN PRN Reason: Nausea/Vomiting Sodium Chloride (Saline Flush) 10 ml FLUSH ONETIME PRN PRN Reason: IV FLUSH Last Admin: 06/09/20 14:50 Dose: 10 ml Documented by: JENI Assessment/Plan Comment:: 79 year old female admitted with weakness 4 days s/p partial colectomy for colon cancer. she relates sh is having brown cottege cheese like bms today and feels very weak with abd pain in lower abd. denies fever chills rigors . no vomiting but mild nausea but eating fairly well. feels dizzy when standing. voiding well and wears depends for partial incontinence. apperent colon resection for colon cancer . previous hysterectomy . no hx of sbo by hx. not eating today and felt weak. taking pain meds but still very painful. pmh diff to get from patient all : unknown soc hx lives at home with son? nobody available for hx . verification ros negative for covid /uti chest pain /tia and or bleeding form rectum. p.e. see note. lab mg .7 hgn 9.4. lfts pending. ua pending ct scan shows edema around jujunum and colon with surgical changes and edema of bowel wall with thickening . chest xray pending. ekg pending. assess: 1) abd pain with edema and post op changes without findings of abscess seen/ will have gen. surgery see in am but appears stable. 2) /// antibiotics not clearly indicated. mild crp elavation a nd recheck labs in am . 3) pain control diff. to say but not bad in bed with current po narcotics. 4) dehydration moderate and cont i.v replacement . 5) hypomagnesemia fairly severe and will need replacement and started on i.v and p.o mag. 6)mild dementia. mild thrombocytopenia . 7) colon cancer ? stage and or prognosis not addressed . 8) weakness pt and ss and ot consulted/ needs some dietary supplements as well boh - Mortality Measure Prognosis:: Good Brief History: Patient was admitted for hypomagnesemia/weakness/ post status colectomy/ abdominal pain. Patient has had unreamarkable stay in hospital and would like to be discharged following her magnesium sulfate infusion. Recommended healthy diet and to drink plenty of fluids to avoid dehydration symptoms. - Discharge Data Discharge Date: 06/11/20 Discharge Disposition: Home, Self-Care 01 Condition: Good - Referral to Home Health Date of Face to Face Encounter: 06/11/20 Primary Care Physician: Shantel Wilde NP - Discharge Diagnosis/Problem(s) (1) Dehydration SNOMED Code(s): 63261955 ICD Code: E86.0 - DEHYDRATION Status: Acute Priority: Medium Current Visit: Yes Onset Date: ~06/09/20 Problem Details: 06/10: Blood pressure and heart rate have been trending up and have been stable since admission. Will continuing monitoring for signs of dehydration 06/11: IV fluids were discontined. Blood pressure and heart rate are stable within normal limits. I&Os have been good. (2) Hypomagnesemia SNOMED Code(s): 326669607 ICD Code: E83.42 - HYPOMAGNESEMIA Status: Acute Priority: High Current Visit: Yes Onset Date: ~06/09/20 Problem Details: 06/10: Magnesium has come up from 0.8 to 1.4. Will give another 4 grams of mag sulfate to increase and will reassess in the AM 06/11: Magnesium has come up to 1.6. She is currently getting another 4 grams of mag sulfate and will reassess status once complete. (3) Loose bowel movements SNOMED Code(s): 330563841 ICD Code: R19.5 - OTHER FECAL ABNORMALITIES Status: Acute Priority: Low Current Visit: Yes Onset Date: ~06/09/20 Problem Details: 06/10: Patient states that she has yet to have a bowel movement. This report was made this AM. Will reassess tomorrow. 06/11: Patient reports 3 bowel movements since admission. She denies any loose stools, abdominal pain, or constipation (4) Weakness SNOMED Code(s): 96114808 ICD Code: R53.1 - WEAKNESS Status: Acute Priority: Medium Current Visit: Yes Onset Date: ~06/09/20 Problem Details: Patient states she is still weak, but is feeling stronger than yesterday. (5) Abdominal pain SNOMED Code(s): 32064605 ICD Code: R10.9 - UNSPECIFIED ABDOMINAL PAIN Status: Acute Current Visit: No Problem Details: General surgery consulted and assessed patient. They will follow along with her care. Qualifiers: Abdominal location: upper abdomen, unspecified Qualified Code(s): R10.10 - Upper abdominal pain, unspecified - Patient Summary/Data Consults: Consultations 06/09/20 17:50 Consult to Case Management/Chief Operations Officer [CONS] Routine OT Evaluation and Treatment [CONS] Routine PT Evaluation and Treatment [CONS] Routine 06/10/20 10:53 Consult to Physician [CONS] Routine - Patient Instructions Diet: Regular Diet as Tolerated Activity: As Tolerated Notify Provider of: Fever, Increased Pain, Swelling and Redness, Drainage, Nausea and/or Vomiting - Discharge Plan Home Medications: Home Meds Doxepin [SINEquan] 10 mg PO BEDTIME 02/28/20 [History] Ergocalciferol (Vitamin D2) [Vitamin D2] 1.25 mg PO ASDIRECTED 02/28/20 [History] Hydrocodone/Acetaminophen [Hydrocodone-Acetamin 5-325 mg] 1 - 2 each PO Q6HR PRN #20 tablet 02/28/20 [Rx] Melatonin 20 mg PO BEDTIME 02/28/20 [History] Metoprolol Tartrate 50 mg PO DAILY 02/28/20 [History] Multivitamin [Multivitamins] 1 tab PO DAILY 02/28/20 [History] Tacrolimus [Prograf] 1 mg PO BID 02/28/20 [History] amLODIPine [Norvasc] 5 mg PO DAILY 02/28/20 [History] metFORMIN [Glucophage] 500 mg PO BID 02/28/20 [History] traMADol [Ultram] 50 - 100 mg PO TID PRN 02/28/20 [History] Omeprazole 20 mg PO DAILY 06/09/20 [History] Vit A/C/Biotin/Zinc/Selenometh [Biotin-Vitamin C Softgel] 1 cap PO DAILY 06/09/20 [History] Oxygen Therapy Mode: Room Air Forms: ED Department Discharge Referrals: Shantel Wilde NP [Primary Care Provider] - - Discharge Summary/Plan Comment DC Time >30 min.: No - General Info Date of Service: 06/11/20 Admission Dx/Problem (Free Text: Admission Diagnosis/Problem Admission Diagnosis/Problem Hypomagnesemia/weakness/post op partial colectomy Subjective Update: Patient is feeling better today. she ambulated yesterday, tolerated diet, passing gas and had bowel movements. She was sitting on a chair today. Patient states she has little pain or abdominal discomfort. Functional Status: Reports: Pain Controlled - Review of Systems General: Reports: No Symptoms HEENT: Reports: No Symptoms Pulmonary: Reports: No Symptoms Cardiovascular: Reports: No Symptoms Gastrointestinal: Reports: No Symptoms Genitourinary: Reports: No Symptoms Musculoskeletal: Reports: No Symptoms Skin: Reports: No Symptoms Neurological: Reports: No Symptoms Psychiatric: Reports: No Symptoms - Patient Data Vitals - Most Recent: Last Vital Signs Temp 97.9 F 06/11/20 07:25 Pulse 75 06/11/20 07:25 Resp 16 06/11/20 07:25 BP 129/70 06/11/20 07:25 Pulse Ox 98 06/11/20 07:25 Orthostatic Blood Pressure [ 117/47 Standing] Orthostatic Blood Pressure [ 105/45 Sitting] Orthostatic Blood Pressure [ 121/43 Supine] Weight - Most Recent: 173 lb 9.6 oz I&O - Last 24 hours: Intake & Output 06/10/20 06/11/20 06/11/20 22:59 06:59 14:59 Intake Total 1801 1014 Output Total 700 400 Balance 1101 614 Lab Results - Last 24 hrs: Laboratory Results - last 24 hr 06/10/20 06/10/20 06/10/20 Range/Units 05:30 10:41 16:50 WBC (3.98-10.04) K/mm3 RBC (3.98-5.22) M/mm3 Hgb (11.2-15.7) gm/dl Hct (34.1-44.9) % MCV (79.4-94.8) fl MCH (25.6-32.2) pg MCHC (32.2-35.5) g/dl RDW Std Deviation (36.4-46.3) fL Plt Count (182-369) K/mm3 MPV (9.4-12.3) fl Neut % (Auto) (34.0-71.1) % Lymph % (Auto) (19.3-51.7) % [place] % (Auto) (4.7-12.5) % Eos % (Auto) (0.7-5.8) Baso % (Auto) (0.1-1.2) % Neut # (Auto) (1.56-6.13) K/mm3 Lymph # (Auto) (1.18-3.74) K/mm3 [place] # (Auto) (0.24-0.36) K/mm3 Eos # (Auto) (0.04-0.36) K/mm3 Baso # (Auto) (0.01-0.08) K/mm3 Sodium (136-145) mEq/L Potassium (3.5-5.1) mEq/L Chloride (98-107) mEq/L Carbon Dioxide (21-32) mEq/L Anion Gap (5-15) BUN (7-18) mg/dL Creatinine (0.55-1.02) mg/dL Est Cr Clr Drug Dosing mL/min Estimated GFR (MDRD) (>60) mL/min BUN/Creatinine Ratio (14-18) Glucose (83-115) mg/dL POC Glucose 131 H 131 H (83-110) mg/dL Calcium (8.5-10.1) mg/dL Phosphorus 3.2 (2.6-4.7) mg/dL Magnesium (1.8-2.4) mg/dl 06/11/20 06/11/20 06/11/20 Range/Units 06:14 06:36 06:36 WBC 4.80 (3.98-10.04) K/mm3 RBC 2.89 L (3.98-5.22) M/mm3 Hgb 8.5 L (11.2-15.7) gm/dl Hct 26.8 L (34.1-44.9) % MCV 92.7 (79.4-94.8) fl MCH 29.4 (25.6-32.2) pg MCHC 31.7 L (32.2-35.5) g/dl RDW Std Deviation 55.3 H (36.4-46.3) fL Plt Count 125 L (182-369) K/mm3 MPV 9.2 L (9.4-12.3) fl Neut % (Auto) 54.2 (34.0-71.1) % Lymph % (Auto) 29.0 (19.3-51.7) % [place] % (Auto) 9.8 (4.7-12.5) % Eos % (Auto) 6.0 H (0.7-5.8) Baso % (Auto) 0.6 (0.1-1.2) % Neut # (Auto) 2.60 (1.56-6.13) K/mm3 Lymph # (Auto) 1.39 (1.18-3.74) K/mm3 [place] # (Auto) 0.47 H (0.24-0.36) K/mm3 Eos # (Auto) 0.29 (0.04-0.36) K/mm3 Baso # (Auto) 0.03 (0.01-0.08) K/mm3 Sodium 141 (136-145) mEq/L Potassium 4.1 (3.5-5.1) mEq/L Chloride 107 (98-107) mEq/L Carbon Dioxide 27 (21-32) mEq/L Anion Gap 11.1 (5-15) BUN 8 (7-18) mg/dL Creatinine 0.9 (0.55-1.02) mg/dL Est Cr Clr Drug Dosing 49.00 mL/min Estimated GFR (MDRD) > 60 (>60) mL/min BUN/Creatinine Ratio 8.9 L (14-18) Glucose 110 (83-115) mg/dL POC Glucose 110 (83-110) mg/dL Calcium 8.4 L (8.5-10.1) mg/dL Phosphorus (2.6-4.7) mg/dL Magnesium 1.6 L (1.8-2.4) mg/dl Med Orders - Current: Current Medications Acetaminophen (Tylenol) 650 mg PO Q4H PRN PRN Reason: Pain (Mild 1-3)/fever Last Admin: 06/09/20 22:26 Dose: 650 mg Documented by: Hydrocodone Bitart/Acetaminophen ([place] 325-5 Mg) 2 tab PO Q4H PRN PRN Reason: Pain (moderate 4-6) Last Admin: 06/10/20 20:06 Dose: 2 tab Documented by: Enoxaparin Sodium (Lovenox) 30 mg SUBCUT DAILY [facility] Last Admin: 06/11/20 08:30 Dose: 30 mg Documented by: Lactated Ringer's (Ringers, Lactated) 1,000 mls @ 50 mls/hr IV ASDIRECTED [facility] Last Admin: 06/10/20 16:22 Dose: 50 mls/hr Documented by: Magnesium Sulfate 4 gm/ Premix 50 mls @ 12.5 mls/hr IV ONETIME ONE Stop: 06/11/20 12:39 Last Admin: 06/11/20 08:56 Dose: 12.5 mls/hr Documented by: Loperamide HCl (Imodium) 6 mg PO Q12H PRN PRN Reason: Diarrhea Last Admin: 06/09/20 22:23 Dose: 6 mg Documented by: Melatonin (Melatonin) 18 mg PO BEDTIME PRN PRN Reason: Insomnia Last Admin: 06/10/20 20:07 Dose: 18 mg Documented by: Pantoprazole Sodium (Protonix) 40 mg PO DAILY@0700 [facility] Last Admin: 06/11/20 06:03 Dose: Not Given Documented by: Potassium Chloride (Klor-Con M20) 20 meq PO DAILY [facility] Stop: 06/12/20 09:01 Last Admin: 06/11/20 08:30 Dose: 20 meq Documented by: Promethazine HCl (Phenergan) 25 mg PO Q6H PRN PRN Reason: Nausea/Vomiting Sodium Chloride (Saline Flush) 10 ml FLUSH ONETIME PRN PRN Reason: IV FLUSH Last Admin: 06/09/20 14:50 Dose: 10 ml Documented by: Tacrolimus (Prograf) 1 mg PO BID [facility] Last Admin: 06/11/20 08:31 Dose: 1 mg Documented by: Discontinued Medications Sodium Chloride (Normal Saline) 1,000 mls @ 999 mls/hr IV ONETIME ONE Stop: 06/09/20 15:55 Last Admin: 06/09/20 15:54 Dose: 999 mls/hr Documented by: Magnesium Sulfate 4 gm/ Premix 50 mls @ 12.5 mls/hr IV ONETIME ONE Stop: 06/09/20 19:51 Last Admin: 06/09/20 16:28 Dose: 12.5 mls/hr Documented by: Magnesium Sulfate 4 gm/ Premix 50 mls @ 12.5 mls/hr IV ONETIME ONE Stop: 06/10/20 13:06 Last Admin: 06/10/20 10:14 Dose: 12.5 mls/hr Documented by: Magnesium Sulfate 4 gm/ Premix 50 mls @ 12.5 mls/hr IV ONETIME ONE Stop: 06/10/20 18:32 Last Admin: 06/10/20 17:24 Dose: Not Given Documented by: Iopamidol (Isovue-300 (61%)) 100 ml IVPUSH ONETIME ONE Stop: 06/09/20 15:26 Last Admin: 06/09/20 15:43 Dose: 100 ml Documented by: Non-Formulary Medication (Melatonin [Melatonin]) 20 mg PO BEDTIME VIRGILIO Potassium Chloride (Klor-Con M20) 40 meq PO ONETIME ONE Stop: 06/09/20 15:53 Last Admin: 06/09/20 16:26 Dose: 40 meq Documented by: - Exam General: Reports: Alert, Oriented Neck: Reports: Supple Lungs: Reports: Clear to Auscultation, Normal Respiratory Effort Cardiovascular: Reports: Regular Rate, Regular Rhythm GI/Abdominal Exam: Normal Bowel Sounds, Soft, Non-Tender, No Distention (Female) Exam: Deferred Rectal (Female) Exam: Deferred Back Exam: Reports: Normal Inspection, Full Range of Motion Skin: Reports: Warm, Dry, Intact Wound/Incisions: Reports: Healing Well Neurological: Reports: No New Focal Deficit Psy/Mental Status: Reports: Alert, Normal Affect, Normal Mood
[2020-06-11] MEDS ORDERED: HYDROCODONE PO PRN (12:15)
[2020-06-11] MEDS ORDERED: ACETAMINOPHEN PO PRN (12:15)
[2020-06-11] MEDS ORDERED: metFORMIN 500 MG Tab PO SCH (17:00)
[2020-06-11] MEDS ORDERED: Doxepin 10 MG Cap PO SCH (21:00)
[2020-06-12] MEDS ORDERED: SELENOMETH PO SCH (09:00)
[2020-06-12] MEDS ORDERED: [UNRECOGNIZED DRUG - OTHER] PO SCH (09:00)
[2020-06-12] MEDS ORDERED: VIT A PO SCH (09:00)
[2020-06-12] MEDS ORDERED: amLODIPine 5 MG Tab PO SCH (09:00)
[2020-06-12] MEDS ORDERED: Metoprolol Tartrate 50 MG Tab PO SCH (09:00)
[2020-06-12] MEDS ORDERED: ZINC PO SCH (09:00)
[2020-06-12] MEDS ORDERED: Multivitamins,Therapeutic Tab PO SCH (09:00)
[2020-06-12] MEDS ORDERED: BIOTIN PO SCH (09:00)
== END 2020-06-11 13:25 | disposition home or self-care (01) | DRG 948 ==
LOC: JD.ED 14:23 → JD.MS 17:48
PROVIDERS: ADMIT Pediatrics; ATTEND Pediatrics
DX: R53.1 Weakness (principal); I95.89 Other hypotension; Z94.4 Liver transplant status; E83.42 Hypomagnesemia; R10.30 Lower abdominal pain, unspecified; G89.18 Other acute postprocedural pain; D64.9 Anemia, unspecified; E87.6 Hypokalemia; E86.0 Dehydration; F03.90 Unspecified dementia, unspecified severity, without behavioral disturbance, psychotic disturbance, mood disturbance, and anxiety; D69.6 Thrombocytopenia, unspecified; R19.5 Other fecal abnormalities; I10 Essential (primary) hypertension; E11.9 Type 2 diabetes mellitus without complications; Z20.828 Contact with and (suspected) exposure to other viral communicable diseases; R60.9 Edema, unspecified; Z98.890 Other specified postprocedural states; Z90.710 Acquired absence of both cervix and uterus; Z79.84 Long term (current) use of oral hypoglycemic drugs; Z79.899 Other long term (current) drug therapy; Z90.89 Acquired absence of other organs; Z90.49 Acquired absence of other specified parts of digestive tract; Z85.038 Personal history of other malignant neoplasm of large intestine
CPT/HCPCS: 36415; 74177; 80053; 83735; 85025; 86140; A9270; J3475; J7030; Q9967; U0002; 80048; 81003; 82962; 84100; 96365; 97116-GP; 97162-GP; 99285; 99285-25; J1650; J7120

== ENCOUNTER 2021-01-10 09:57 | Emergency (ER) | payer MEDICARE, OTHER ==
[2021-01-10] MEDS ORDERED: Sodium Chloride 0.9% 10 ML Syringe FLUSH PRN (11:09)
[2021-01-10] MEDS ORDERED: Sodium Chloride 0.9% 500 ML IV ONE ×2 (11:10→13:07)
--- NOTE | 2021-01-10 12:09 | CR ---
Chest: Portable view of the chest was obtained. Comparison: No prior chest imaging is available. Lung markings are slightly increased. Heart size is not enlarged. Upper mediastinum is normal. Degenerative change is seen within both shoulders. Impression: 1. Lung markings are slightly increased. Uncertain if this is a chronic finding or could represent mild bronchitis. 2. Degenerative change is noted within both shoulders. Diagnostic code #3
--- NOTE | 2021-01-10 12:19 | EDM.PDOC ---
ED HPI GENERAL MEDICAL PROBLEM - General Chief Complaint: Fever Stated Complaint: [facility] Time Seen by Provider: 01/10/21 10:56 Source of Information: Reports: Family History Limitations: Reports: No Limitations - History of Present Illness INITIAL COMMENTS - FREE TEXT/NARRATIVE: 80-year-old female presents via [facility] ambulance with complaints of fever and abdominal pain. Patient's [id number] is sitting at the bedside. Patient is a poor historian and is nonverbal with me. She will follow commands however. Per the patient's daughter report, the patient was diagnosed with colon cancer in May 2020 and did have surgery to remove an unknown amount of her colon with a diagnosis of adenocarcinoma and had 6 lymph nodes removed. The patient did refuse chemotherapy and radiation to treat. Patient's [id number] reports that 3 days ago the patient became much less alert and stopped ambulating. She states she had not been eating and has only eaten a small bit of mac & cheese since then. She reports that the patient was incontinent of maroon-colored stool 3 days ago x2 episodes. And she has only voided once in the last 3 days. She also notes that the patient had a fever 2 days ago as high as 101 and she states that they did get a fever to break and has not had a fever since. Patient complains of left upper and left lower quadrant abdominal pain. She has not vomited or complained of nausea. She has not had any cough or shortness of breath. Apparently the patient is on palliative care and hospice care was discussed yesterday however no decisions were made in regards to that. Upon questioning, the patient still does want to be a full code however she does not want to be intubated. The patient's gastro enterologist is Dr. Justin, her primary care physician is Dr. Shantel Wilde in [place], her oncologist is Dr. Christianson. Patient does have chronic back pain for which she takes 10 of oxycodone however the patient's family states this has not been working for her lately. 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 - Related Data Allergies Allergy/AdvReac Type Severity Reaction Status Date / Time No Known Allergies Allergy Verified 01/10/21 10:14 Home Meds: Home Meds Doxepin [SINEquan] 10 mg PO BEDTIME PRN 02/28/20 [History] Metoprolol Tartrate 50 mg PO DAILY 02/28/20 [History] Tacrolimus [Prograf] 1 mg PO BID 02/28/20 [History] amLODIPine [Norvasc] 5 mg PO DAILY 02/28/20 [History] metFORMIN [Glucophage] 500 mg PO DAILY 02/28/20 [History] Cholestyramine [Cholestyramine Resin] 5 gm MC DAILY 01/10/21 [History] Dicyclomine [Bentyl] 10 mg PO TID PRN 01/10/21 [History] Diphenoxylate HCl/Atropine [Lomotil Tablet] 1 each PO BID 01/10/21 [History] Mirtazapine 7.5 mg PO DAILY PRN 01/10/21 [History] Ondansetron [Zofran ODT] 8 mg PO Q8H PRN 01/10/21 [History] Pantoprazole Sodium [Protonix] 40 mg PO DAILY 01/10/21 [History] oxyCODONE ER [OxyCONTIN] 10 mg PO DAILY PRN 01/10/21 [History] Past Medical History HEENT History: Reports: Other (See Below) Other HEENT History: pt wears upper dentures Cardiovascular History: Reports: Hypertension Gastrointestinal History: Reports: Other (See Below) Other Gastrointestinal History: liver transplant; abdominal hernia repair with mesh 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: Endocrine/Metabolic History: Reports: Diabetes, Type II Oncologic (Cancer) History: Reports: Colon - Infectious Disease History Infectious Disease History: Reports: Chicken Pox, Measles, Mumps - Past Surgical History HEENT Surgical History: Reports: Tonsillectomy GI Surgical History: Reports: Appendectomy, Cholecystectomy, Colon Female Surgical History: Reports: Section, Hysterectomy Musculoskeletal Surgical History: Reports: Knee Replacement Social & Family History - Tobacco Use Tobacco Use Status *Q: Never Tobacco User - Caffeine Use Caffeine Use: Reports: Tea Other Caffeine Use: diet - Recreational Drug Use Recreational Drug Use: No ED ROS GENERAL - Review of Systems Review Of Systems: See Below Constitutional: Reports: Fever, Chills, Malaise, Weakness, Fatigue, Decreased Appetite HEENT: Reports: No Symptoms Respiratory: Reports: No Symptoms Cardiovascular: Reports: No Symptoms Endocrine: Reports: No Symptoms GI/Abdominal: Reports: Abdominal Pain (Left upper and left lower quadrant), Decreased Appetite, Melena, Stool Incontinence. Denies: Nausea, Vomiting : Reports: Other (Decreased urination) Musculoskeletal: Reports: Other (Weakness) Skin: Reports: No Symptoms Neurological: Reports: No Symptoms Psychiatric: Reports: No Symptoms Hematologic/Lymphatic: Reports: No Symptoms Immunologic: Reports: No Symptoms ED EXAM, GI/ABD - Physical Exam Exam: See Below Exam Limited By: No Limitations General Appearance: WD/WN, No Apparent Distress, Lethargic, Cachetic Ears: Normal External Exam, Hearing Grossly Normal Nose: Normal Inspection, Normal Mucosa Throat/Mouth: Normal Inspection, Normal Lips, No Airway Compromise. No: Normal Voice (Patient is not conversing with me) Head: Atraumatic, Normocephalic Neck: Normal Inspection, Supple, Non-Tender, Full Range of Motion Respiratory/Chest: No Respiratory Distress, Lungs Clear, Normal Breath Sounds, No Accessory Muscle Use, Chest Non-Tender Cardiovascular: Normal Peripheral Pulses, Regular Rate, Rhythm, No Edema, No Murmur GI/Abdominal Exam: Normal Bowel Sounds, Soft. No: Non-Tender (Left upper and lower quadrant tenderness) (Female) Exam: Deferred Rectal (Female) Exam: Normal Rectal Tone, Heme - Stool, Hemorrhoids, Tenderness Back Exam: Normal Inspection, Full Range of Motion Extremities: Normal Inspection, Normal Range of Motion, Non-Tender, No Pedal Edema, Normal Capillary Refill Neurological: Oriented. No: Alert (Lethargic) Psychiatric: Flat Affect Skin Exam: Warm, Dry, Intact, No Rash, Pallor Lymphatic: No Adenopathy Course - Vital Signs Text/Narrative:: As stated above, patient presents with a 3-day history of decreased cognitive functioning, decreased appetite, decreased urination, and bowel incontinence of maroon-colored stools. Again, the patient is a poor historian as she is nonverbal with me however she does follow commands. Upon assessment, the patient is cachectic and pale. Mucous membranes are moist. And she does have abdominal pain with palpation to the left upper and left lower quadrants of her abdomen. She does have positive bowel tones. She denies any cough or shortness of breath. She did have a fever 2 days ago which did break and has not returned. I have ordered labs to include a CBC, CMP, C-reactive protein, magnesium level, lactic acid, blood cultures x2, urinalysis with micro and culture if indicated, chest x-ray and a CT of the abdomen and pelvis. I will also perform a rectal exam on the patient to check for occult blood. Last Recorded V/S: Last Vital Signs Temp 98.0 F 01/10/21 10:05 Pulse 97 01/10/21 10:16 Resp 18 01/10/21 10:16 BP 112/55 L 01/10/21 10:16 Pulse Ox 91 L 01/10/21 10:16 - Orders/Labs/Meds Orders: Active Orders 24 hr Category Date Time Status CORONAVIRUS COVID-19 NAVEED [MOLEC] Stat Lab 01/10/21 13:33 Received CULTURE BLOOD [BC] Stat Lab 01/10/21 11:35 Received REFLEX LACTIC ACID YES OR NO [CHEM] Routine Lab 01/10/21 12:40 Received Magnesium Sulfate/Water [Magnesium Sulfate in Water 2 Med 01/10/21 13:37 Active GM/50 ML] 2 gm Premix Bag 1 bag IV ONETIME Sodium Chloride 0.9% [Normal Saline] 1,000 ml Med 01/10/21 13:45 Active IV ASDIRECTED Sodium Chloride 0.9% [Saline Flush] Med 01/10/21 11:09 Active 10 ml FLUSH ASDIRECTED PRN Blood Culture x2 Reflex Set [OM.PC] Stat Oth 01/10/21 11:09 Ordered Saline Lock Insert [OM.PC] Stat Oth 01/10/21 11:09 Ordered Medication Orders Magnesium Sulfate 2 gm/ Premix 50 mls @ 25 mls/hr IV ONETIME ONE Stop: 01/10/21 15:36 Last Admin: 01/10/21 14:19 Dose: 25 mls/hr Documented by: HERMMIC Sodium Chloride (Normal Saline) 1,000 mls @ 250 mls/hr IV ASDIRECTED VIRGILIO Last Admin: 01/10/21 14:08 Dose: 250 mls/hr Documented by: HERMMIC Sodium Chloride (Sodium Chloride 0.9% 10 Ml Syringe) 10 ml FLUSH ASDIRECTED PRN PRN Reason: Keep Vein Open Last Admin: 01/10/21 12:46 Dose: 10 ml Documented by: HERMMIC Labs: Laboratory Tests 01/10/21 01/10/21 01/10/21 Range/Units 10:05 10:05 11:35 WBC 13.32 H (3.98-10.04) K/mm3 RBC 3.59 L (3.98-5.22) M/mm3 Hgb 10.8 L D (11.2-15.7) gm/dl Hct 33.1 L (34.1-44.9) % MCV 92.2 (79.4-94.8) fl MCH 30.1 (25.6-32.2) pg MCHC 32.6 (32.2-35.5) g/dl RDW Std Deviation 49.5 H (36.4-46.3) fL Plt Count 132 L (182-369) K/mm3 MPV 10.3 (9.4-12.3) fl Neut % (Auto) 91.0 H (34.0-71.1) % Lymph % (Auto) 6.2 L (19.3-51.7) % [place] % (Auto) 2.4 L (4.7-12.5) % Eos % (Auto) 0.1 L (0.7-5.8) Baso % (Auto) 0.1 (0.1-1.2) % Neut # (Auto) 12.13 H (1.56-6.13) K/mm3 Lymph # (Auto) 0.82 L (1.18-3.74) K/mm3 [place] # (Auto) 0.32 (0.24-0.36) K/mm3 Eos # (Auto) 0.01 L (0.04-0.36) K/mm3 Baso # (Auto) 0.01 (0.01-0.08) K/mm3 Manual Slide Review Abnormal smear Sodium 141 (136-145) mEq/L Potassium 3.7 (3.5-5.1) mEq/L Chloride 102 (98-107) mEq/L Carbon Dioxide 24 (21-32) mEq/L Anion Gap 18.7 H (5-15) BUN 38 H D (7-18) mg/dL Creatinine 3.8 H D (0.55-1.02) mg/dL Est Cr Clr Drug Dosing 11.73 mL/min Estimated GFR (MDRD) 11 (>60) mL/min BUN/Creatinine Ratio 10.0 L (14-18) Glucose 107 H (70-99) mg/dL Lactic Acid 3.7 H* (0.4-2.0) mmol/L Calcium 7.9 L (8.5-10.1) mg/dL Magnesium 0.8 L (1.8-2.4) mg/dL Total Bilirubin 1.6 H (0.2-1.0) mg/dL AST 33 (15-37) U/L ALT 12 L (14-59) U/L Alkaline Phosphatase 94 (46-116) U/L C-Reactive Protein 18.6 H* (<1.0) mg/dL Total Protein 6.4 (6.4-8.2) g/dl Albumin 2.2 L (3.4-5.0) g/dl Globulin 4.2 gm/dL Albumin/Globulin Ratio 0.5 L (1-2) Urine Color (Yellow) Urine Appearance (Clear) Urine pH (5.0-8.0) Ur Specific [place] (1.005-1.030) Urine Protein (Negative) Urine Glucose (UA) (Negative) Urine Ketones (Negative) Urine Occult Blood (Negative) Urine Nitrite (Negative) Urine Bilirubin (Negative) Urine Urobilinogen (0.2-1.0) Ur Leukocyte Esterase (Negative) U Hyaline Cast (Auto) (0-5) /lpf Urine RBC (0-5) /hpf Urine WBC (0-5) /hpf Ur Epithelial Cells (0-5) /hpf Urine Bacteria (FEW) /hpf Urine Mucus (FEW) /hpf 01/10/21 Range/Units 12:00 WBC (3.98-10.04) K/mm3 RBC (3.98-5.22) M/mm3 Hgb (11.2-15.7) gm/dl Hct (34.1-44.9) % MCV (79.4-94.8) fl MCH (25.6-32.2) pg MCHC (32.2-35.5) g/dl RDW Std Deviation (36.4-46.3) fL Plt Count (182-369) K/mm3 MPV (9.4-12.3) fl Neut % (Auto) (34.0-71.1) % Lymph % (Auto) (19.3-51.7) % [place] % (Auto) (4.7-12.5) % Eos % (Auto) (0.7-5.8) Baso % (Auto) (0.1-1.2) % Neut # (Auto) (1.56-6.13) K/mm3 Lymph # (Auto) (1.18-3.74) K/mm3 [place] # (Auto) (0.24-0.36) K/mm3 Eos # (Auto) (0.04-0.36) K/mm3 Baso # (Auto) (0.01-0.08) K/mm3 Manual Slide Review Sodium (136-145) mEq/L Potassium (3.5-5.1) mEq/L Chloride (98-107) mEq/L Carbon Dioxide (21-32) mEq/L Anion Gap (5-15) BUN (7-18) mg/dL Creatinine (0.55-1.02) mg/dL Est Cr Clr Drug Dosing mL/min Estimated GFR (MDRD) (>60) mL/min BUN/Creatinine Ratio (14-18) Glucose (70-99) mg/dL Lactic Acid (0.4-2.0) mmol/L Calcium (8.5-10.1) mg/dL Magnesium (1.8-2.4) mg/dL Total Bilirubin (0.2-1.0) mg/dL AST (15-37) U/L ALT (14-59) U/L Alkaline Phosphatase (46-116) U/L C-Reactive Protein (<1.0) mg/dL Total Protein (6.4-8.2) g/dl Albumin (3.4-5.0) g/dl Globulin gm/dL Albumin/Globulin Ratio (1-2) Urine Color [place] H (Yellow) Urine Appearance Clear (Clear) Urine pH 5.5 (5.0-8.0) Ur Specific [place] > or = 1.030 (1.005-1.030) Urine Protein 1+ H (Negative) Urine Glucose (UA) Negative (Negative) Urine Ketones Trace H (Negative) Urine Occult Blood Negative (Negative) Urine Nitrite Negative (Negative) Urine Bilirubin 2+ H (Negative) Urine Urobilinogen 1.0 (0.2-1.0) Ur Leukocyte Esterase Negative (Negative) U Hyaline Cast (Auto) 5-10 H (0-5) /lpf Urine RBC Not seen (0-5) /hpf Urine WBC 0-5 (0-5) /hpf Ur Epithelial Cells 0-5 (0-5) /hpf Urine Bacteria Moderate H (FEW) /hpf Urine Mucus Few (FEW) /hpf Meds: Medications Generic Name Dose Route Start Last Admin Trade Name Zunilda PRN Reason Stop Dose Admin Magnesium Sulfate 2 gm/ Premix 50 mls @ 25 mls/hr 01/10/21 13:37 01/10/21 14:19 IV 01/10/21 15:36 25 mls/hr ONETIME ONE Administration Sodium Chloride 1,000 mls @ 250 mls/hr 01/10/21 13:45 01/10/21 14:08 Normal Saline IV 250 mls/hr ASDIRECTED VIRGILIO Administration Sodium Chloride 10 ml 01/10/21 11:09 01/10/21 12:46 Sodium Chloride 0.9% 10 Ml Syringe FLUSH 10 ml ASDIRECTED PRN Administration Keep Vein Open Discontinued Medications Generic Name Dose Route Start Last Admin Trade Name Zunilda PRN Reason Stop Dose Admin Hydromorphone HCl 0.5 mg 01/10/21 13:31 01/10/21 13:42 Hydromorphone 0.5 Mg/0.5 Ml Syringe IVPUSH 01/10/21 13:32 0.5 mg ONETIME ONE Administration Sodium Chloride 500 mls @ 500 mls/hr 01/10/21 11:10 01/10/21 12:03 Normal Saline IV 01/10/21 12:09 500 mls/hr .BOLUS ONE Administration Sodium Chloride 500 mls @ 999 mls/hr 01/10/21 13:07 01/10/21 14:07 Normal Saline IV 01/10/21 13:37 999 mls/hr .BOLUS ONE Administration Ceftriaxone Sodium 2 gm/ 100 mls @ 200 mls/hr 01/10/21 13:08 01/10/21 13:43 Sodium Chloride IV 01/10/21 13:37 200 mls/hr ONETIME ONE Administration - Re-Assessments/Exams Free Text/Narrative Re-Assessment/Exam: 01/10/21 12:36 Vaginal exam was completed and there was no stool noted in the rectum. Occult was negative. 01/10/21 12:52 Radiologist impression portable view of the chest: 1. Lung markings are slightly increased. Uncertain if this is a chronic finding or could represent mild bronchitis. 2. Degenerative changes noted within both shoulders. Radiologist impression CT of the abdomen and pelvis IV and oral contrast were not utilized due to the patient's creatinine being 3.8: 1. Numerous nonacute findings. 2. Prior right colon surgery. 3. Small right-sided pleural effusion and minimal left-sided pleural effusion which is an interval change from prior exam. 3. Spleen has mildly enlarged length is an interval change from prior exam. 01/10/21 13:15 Hematology reveals a WBC of 13.32, hemoglobin 10.8, hematocrit 33.1, platelet count 132, neutrophil percentage 91.0 Chemistry reveals a sodium of 141, potassium 3.7, carbon dioxide 24, anion gap 18.7, BUN 38, creatinine 3.8, glucose 107, lactic acid 3.7, magnesium 0.8, total bilirubin 1.6, AST 33, ALT 12, C-reactive protein 18.6 Urinalysis shows 1+ protein, trace ketones, negative nitrite, negative occult blood, 2+ bilirubin, leukocyte Estrace negative, 5-10 hyaline casts, urine RBC not seen, urine WBC 0-5, urine bacteria moderate I have ordered for the patient to receive initially a 500 mL bolus of normal saline but she will receive 1 full liter and then a second liter to run at 250 mL's per hour. I have also ordered for her to receive 2 g of Rocephin IV and 2 g of magnesium IV. I feel this patient does need to be admitted and with her creatinine at 3.8 she likely will need to go to [place]. Her physicians are located at [facility] and her family requests I call there. I have spoken to Dr. Robert, the hospitalist at [facility] in [place], and he has accepted this patient in transfer. She will be transferred by ambulance. 01/10/21 13:32 Patient complains of back pain and family is requesting that we give her something for the pain. I have also ordered for the patient to receive 1/2 mg of Dilaudid IV x1 dose. Departure - Departure Time of Disposition: 14:30 Disposition: DC/Tfer to Acute Hospital 02 Condition: Fair Clinical Impression: Dehydration Acute renal failure Qualifiers: Acute renal failure type: unspecified Qualified Code(s): N17.9 - Acute kidney failure, unspecified - Discharge Information Referrals: Shantel Wilde NP [Primary Care Provider] - Forms: ED Department Discharge Sepsis Event Note (ED) - Evaluation Sepsis Screening Result: No Definite Risk - Focused Exam Vital Signs: Vital Signs Temp Pulse Resp BP Pulse Ox 01/10/21 10:16 97 18 112/55 L 91 L 01/10/21 10:05 98.0 F 94 18 205/180 H 93 L - My Orders Last 24 Hours: My Active Orders 01/10/21 11:09 Sodium Chloride 0.9% [Saline Flush] 10 ml FLUSH ASDIRECTED PRN Blood Culture x2 Reflex Set [OM.PC] Stat Saline Lock Insert [OM.PC] Stat 01/10/21 11:35 CULTURE BLOOD [BC] Stat 01/10/21 12:40 REFLEX LACTIC ACID YES OR NO [CHEM] Routine 01/10/21 13:33 CORONAVIRUS COVID-19 NAVEED [MOLEC] Stat 01/10/21 13:37 Magnesium Sulfate/Water [Magnesium Sulfate in Water 2 GM/50 ML] 2 gm Premix Bag 1 bag IV ONETIME 01/10/21 13:45 Sodium Chloride 0.9% [Normal Saline] 1,000 ml IV ASDIRECTED - Assessment/Plan Last 24 Hours: My Active Orders 01/10/21 11:09 Sodium Chloride 0.9% [Saline Flush] 10 ml FLUSH ASDIRECTED PRN Blood Culture x2 Reflex Set [OM.PC] Stat Saline Lock Insert [OM.PC] Stat 01/10/21 11:35 CULTURE BLOOD [BC] Stat 01/10/21 12:40 REFLEX LACTIC ACID YES OR NO [CHEM] Routine 01/10/21 13:33 CORONAVIRUS COVID-19 NAVEED [MOLEC] Stat 01/10/21 13:37 Magnesium Sulfate/Water [Magnesium Sulfate in Water 2 GM/50 ML] 2 gm Premix Bag 1 bag IV ONETIME 01/10/21 13:45 Sodium Chloride 0.9% [Normal Saline] 1,000 ml IV ASDIRECTED
--- NOTE | 2021-01-10 12:53 | CT ---
CT abdomen and pelvis Technique: Multiple axial sections were obtained from above the dome of the diaphragm inferiorly through the pubic symphysis. Intravenous and oral contrast were not utilized. Comparison: Prior CT abdomen and pelvis exam of 06/09/20. Findings: Small right-sided pleural effusion is seen which is an interval change from prior exam. Very minimal left-sided pleural effusion is also noted. Mitral annulus calcification is seen. Coronary artery calcification is seen. Calcification is also seen at the base of the aorta. Liver shows no focal abnormality. Spleen is enlarged at 14.5 cm in length. Spleen size on prior CT exam measures 12.0 cm. Kidneys show no abnormal calcifications. No hydronephrosis is seen. Pancreas is atrophied. Low density cyst is noted within the pancreas which measures approximately 1.4 cm which is stable. Prior study showed a second cyst which is not well seen currently because of lack of contrast. Calcified gallstones are felt to be present. There is prior surgery within the right side of the abdominal wall. Prior right-sided colonic surgery is noted. Abdominal aorta shows atherosclerotic change which continues into the iliac vessels. No aneurysm is seen. No pelvic mass or adenopathy is seen. No small bowel dilatation is seen. Bone window settings were reviewed which show diffuse degenerative change within the spine with acute kyphosis centered to the upper thoracic spine. Degenerative change is noted within the sacroiliac joints. Joint space narrowing is seen within both hip joints. Impression: 1. Numerous nonacute findings as noted above. 2. Prior right colon surgery. 3. Small right-sided pleural effusion and minimal left-sided pleural effusion which is an interval change from prior exam. 4. Spleen has a mildly enlarged length which is an interval change from prior exam. Diagnostic code #3
[2021-01-10] MEDS ORDERED: cefTRIAXone 2 GM in Sodium Chloride 0.9% 100 ML IV ONE (13:08)
[2021-01-10] MEDS ORDERED: HYDROmorphone 0.5 MG/0.5 ML Syringe IVPUSH ONE (13:31)
[2021-01-10] MEDS ORDERED: Magnesium Sulfate/Water 2 GM in Premix Bag 1 BAG IV ONE (13:37)
[2021-01-10] MEDS ORDERED: Sodium Chloride 0.9% 1,000 ML IV SCH (13:45)
== END 2021-01-10 14:25 ==
LOC: JD.ED 09:57
DX: E86.0 Dehydration (principal); N17.9 Acute kidney failure, unspecified; I10 Essential (primary) hypertension; E11.9 Type 2 diabetes mellitus without complications; Z79.899 Other long term (current) drug therapy; Z20.822 Contact with and (suspected) exposure to COVID-19
CPT/HCPCS: 36415; 71045; 74176; 80053; 81001; 83605; 83735; 85025; 86140; 87040; 87077; 87186; 96365; 96375; 99285; J0696; J1170; J3475; J7030; U0002